=== PATIENT | female | born 1970 | race Caucasian/White ===

== ENCOUNTER 2016-08-18 16:49 | Inpatient (IN) | payer MEDICAID ==
[~2016-08-18] VITALS: Ht 162.6 cm; Wt 43.1 kg
--- NOTE | 2016-08-18 17:00 | NUR ---
PT FAMILY MEMBER AT BEDSIDE.NO TRAUMA . PT WAS HELD BY SON, PROTECTING THE PT. PER PT SON, PT HAD ANOTHER EPISODE OF SEIZURE A FEW YEARS AGO.
[2016-08-18] MEDS ORDERED: ONDANSETRON 4 MG/2 ML VIAL IV ONE (17:15)
[2016-08-18] MEDS ORDERED: ONDANSETRON 4 MG/2 ML VIAL ONE (17:16)
[2016-08-18 17:24] LABS: BASOPHILS # (AUTO) 0.1 K/uL (0.0-0.2); BASOPHILS % (AUTO) 1.1 % (0.0-2.0); EOSINOPHILS # (AUTO) 0.2 K/uL (0.0-0.7); EOSINOPHILS % (AUTO) 1.8 % (0.0-7.0); HEMATOCRIT 33.3 % (37.0-47.0); HEMOGLOBIN 10.9 g/dL (12.0-16.0); LYMPHOCYTES # (AUTO) 4.8 K/uL (0.8-4.8); LYMPHOCYTES % (AUTO) 43.5 % (20.5-51.5); MEAN CORPUSCULAR HEMOGLOBIN 29.3 uug (27.0-31.0); MEAN CORPUSCULAR HGB CONC 33 g/dL (32.0-37.0); MEAN CORPUSCULAR VOLUME 89.6 fL (81.0-99.0); MONOCYTES # (AUTO) 0.8 K/uL (0.1-1.30); MONOCYTES % (AUTO) 7.6 % (0.0-11.0); NEUTROPHILS # (AUTO) 5.2 K/uL (1.8-8.9); PLATELET COUNT (AUTO) 310 K/uL (150-450); RED BLOOD CELL COUNT(AUTO) 3.71 MIL/uL (4.20-5.40); RED CELL DISTRIBUTION WIDTH 12.3 % (11.5-14.5); WHITE BLOOD COUNT (AUTO) 11.1 K/uL (4.0-11.2)
[2016-08-18] MEDS ORDERED: LEVETIRACETAM IV 1,000 MG in IV DEXTROSE 5% 100 ML IV ONE (17:30)
[2016-08-18 17:36] LABS: CALCIUM 9.2 mg/dL (8.5-10.1); CREATININE 1.1 mg/dL (0.6-1.3); POTASSIUM 3.2 mmol/L (3.5-5.1)
[2016-08-18 17:42] LABS: EOSINOPHILS % (MANUAL) 4 % (0-8); LYMPHOCYTES % (MANUAL) 48 % (20-40); MONOCYTES % (MANUAL) 6 % (2-10); NEUTROPHILS % (MANUAL) 42 % (42-75)
[2016-08-18 17:43] LABS: PLATELET ESTIMATE ADEQUATE
[2016-08-18] MEDS ORDERED: LEVETIRACETAM 500 MG/5 ML VIAL IV ONE (17:51)
--- NOTE | 2016-08-18 17:58 | NUR ---
PER PT DAUGHTER, PT AWAKE NOW, PT DOES NOT REMEMBER WHAT HAPPENED BUT PER PT DAUGHRTER, PT COMMUNICATING BEFORE
[2016-08-18] MEDS ORDERED: IV NS 1000 ML 1,000 ML IV ONE (18:00)
[2016-08-18] MEDS ORDERED: METF10002 PO (18:30)
[2016-08-18] MEDS ORDERED: LORA10TA7 PO (18:30)
[2016-08-18] MEDS ORDERED: ATOR40TA PO (18:30)
[2016-08-18] MEDS ORDERED: CHOL100030 PO (18:30)
[2016-08-18] MEDS ORDERED: FENO145T20 PO (18:30)
[2016-08-18] MEDS ORDERED: ASPI81TA31 PO (18:30)
[2016-08-18] MEDS ORDERED: IBUP-1955 PO (18:30)
[2016-08-18] MEDS ORDERED: ONDA-25 PO (18:30)
[2016-08-18] MEDS ORDERED: GLIM1TAB3 PO (18:30)
[2016-08-18] MEDS ORDERED: NAPR500T3 PO (18:30)
[2016-08-18] MEDS ORDERED: LEVE750T10 PO (18:30)
[2016-08-18] MEDS ORDERED: POTASSIUM BICARBONATE/CIT AC 25 MEQ TABLET.EFF PO ONE (20:30)
[2016-08-18 20:34] LABS: *BILIRUBIN,URIN NEGATIVE (NEGATIVE); *BLOOD, URINE 1+ (NEGATIVE); *COLOR,URINE YELLOW (YELLOW); *KETONES,URINE NEGATIVE (NEGATIVE); *PROTEIN,URINE NEGATIVE (NEGATIVE); *UROBILINOGEN,URINE 0.2 E.U./dl (NORMAL); LEUKOCYTE ESTERASE ,URINE NEGATIVE (NEGATIVE); NITRITE, URINE NEGATIVE (NEGATIVE); PH,URINE 5.5 (5.0-8.0)
[2016-08-18 20:39] LABS: ALANINE AMINOTRANSFERASE 37 U/L (14-59); ALBUMIN 4.1 g/dL (3.4-5.0); ALKALINE PHOSPHATASE 64 U/L (50-136); ASPARTATE AMINOTRANSFERASE 25 U/L (15-37); BILIRUBIN,DIRECT < 0.1 mg/dL (0.0-0.2); BILIRUBIN,TOTAL 0.2 mg/dL (0.2-1.0); MAGNESIUM 1.5 mg/dL (1.8-2.4); TOTAL PROTEIN, SERUM 8.2 g/dL (6.4-8.2)
[2016-08-18] MEDS ORDERED: POTASSIUM BICARBONATE/CIT AC 25 MEQ TABLET.EFF ONE (20:40)
[2016-08-18 20:49] LABS: UGLUCOSE 1+ (NEGATIVE)
[2016-08-18 20:52] LABS: *CLARITY,URINE CLEAR (CLEAR)
[2016-08-18 20:55] LABS: RBC,URINE 0-3 /HPF (0-3); SQUAMOUS EPITHELIAL CELL,UR FEW /HPF (NONE SEEN); WBC,URINE 0-3 /HPF (0-3)
[2016-08-18] MEDS ORDERED: MAGNESIUM SULFATE/D5W 100 ML IV SCH (21:15)
[2016-08-18] MEDS ORDERED: MAGNESIUM SULFATE/D5W 100 ML ONE (21:25)
--- NOTE | 2016-08-18 22:02 | NUR ---
Pt. admitted to Telemetry , under care of Dr. Antonio. Dx : Siezure/Encephalopathy Belongs List completed.
[2016-08-18 22:10] VITALS: BP 93/63
--- NOTE | 2016-08-18 22:30 | NUR ---
PATIENT RECEIVED FROM ED ACCOMPANIED BY ED STAFF AND PATIENT DAUGHTER VIA GURNEY. DIAGNOSIS IS SEIZURE. PATIENT IS PALAUAN SPEAKING ONLY, INFORMATION GIVEN BY DAUGHTER JO ANN. UPON FACE TO FACE PATIENT IS AOX2. OBSERVED TO BE SOMEWHAT CONFUSED AND FORGETFUL. PT ALSO SOMEWHAT SLOW IN RESPONSE DURING INTERACTION. PER DAUGHTER PT SEIZURE WAS WITNESSED AT HOME AND WAS ABLE TO BE ASSISTED TO FLOOR PRIOR TO SEIZURE. LAST SEIZURE X6 YEARS AGO. PATIENT ALSO HAS MEDICAL HISTORY OF DIABETES. SKIN IS INTACT. HEP LOCK IN LEFT AC. MD CALLED FOR ORDERS. SAFETY MEASURES IMPLEMENTED.
[2016-08-18] MEDS ORDERED: ACETAMINOPHEN 325 MG TABLET PO PRN (23:15)
[2016-08-18] MEDS ORDERED: NAPROXEN 500 MG TABLET PO PRN (23:15)
[2016-08-18] MEDS ORDERED: INSULIN REGULAR, HUMAN 300 UNIT/3 ML VIAL SQ PRN (23:15)
[2016-08-18] MEDS ORDERED: MORPHINE SULFATE 2 MG/1 ML DISP.SYRIN IV PRN (23:15)
[2016-08-18] MEDS ORDERED: ONDANSETRON 4 MG/2 ML VIAL IV PRN (23:15)
[2016-08-18] MEDS ORDERED: DEXTROSE 50% 50 ML DISP.SYRIN IV PRN (23:15)
[2016-08-18] MEDS ORDERED: MAGNESIUM HYDROXIDE 30 ML LIQUID UDC PO PRN (23:15)
[2016-08-19] MEDS: POTASSIUM CHLORIDE 20 MEQ in IV 1/2NS 1000 ML 1,000 ML IV PRN ×2 (00:10→13:16)
[2016-08-19 05:45] VITALS: BP 81/53
--- NOTE | 2016-08-19 06:23 | NUR ---
MADE AWARE OF PATIENT BLOOD PRESSURE 81/53, HEART RATE 73. NO S/S HYPOTENSION NOTED. PATIENT FEET ELEVATED. NO FURTHER ORDERS GIVEN. PO FLUIDS GIVEN. REMAINS ON IV FLUIDS AT 70CC/HR. NO ACUTE DISTRESS NOTED. SAFETY MEASURES PROVIDED.
[2016-08-19] MEDS: BLOOD SUGAR DIAGNOSTIC 1 EACH STRIP VI SCH ×4 (06:45→20:30)
[2016-08-19 07:13] LABS: ALBUMIN 3.1 g/dL (3.4-5.0); BILIRUBIN,TOTAL 0.4 mg/dL (0.2-1.0); CALCIUM 7.7 mg/dL (8.5-10.1); CREATININE 0.7 mg/dL (0.6-1.3); MAGNESIUM 1.8 mg/dL (1.8-2.4); PHOSPHOROUS 3.1 mg/dL (2.5-4.9); POTASSIUM 3.9 mmol/L (3.5-5.1); TOTAL PROTEIN, SERUM 6.5 g/dL (6.4-8.2)
[2016-08-19 07:18] LABS: BASOPHILS % (AUTO) 0.3 % (0.0-2.0); EOSINOPHILS # (AUTO) 0.1 K/uL (0.0-0.7); EOSINOPHILS % (AUTO) 0.9 % (0.0-7.0); HEMATOCRIT 29.4 % (37.0-47.0); HEMOGLOBIN 9.9 g/dL (12.0-16.0); LYMPHOCYTES % (AUTO) 16.9 % (20.5-51.5); MEAN CORPUSCULAR HEMOGLOBIN 30.4 uug (27.0-31.0); MEAN CORPUSCULAR HGB CONC 34 g/dL (32.0-37.0); MEAN CORPUSCULAR VOLUME 90.7 fL (81.0-99.0); MONOCYTES % (AUTO) 8.5 % (0.0-11.0); NEUTROPHILS # (AUTO) 8.5 K/uL (1.8-8.9); NEUTROPHILS % (AUTO) 73.4 % (38.5-71.5); PLATELET COUNT (AUTO) 258 K/uL (150-450); RED BLOOD CELL COUNT(AUTO) 3.25 MIL/uL (4.20-5.40); RED CELL DISTRIBUTION WIDTH 12.5 % (11.5-14.5); WHITE BLOOD COUNT (AUTO) 11.6 K/uL (4.0-11.2)
[2016-08-19 07:20] LABS: THYROID STIMULATING HORMONE 1.142 mIU/mL (0.358-3.740)
[2016-08-19] MEDS: GLIMEPIRIDE 2 MG TABLET PO SCH (08:00)
[2016-08-19] MEDS: ASPIRIN 81 MG TAB.CHEW PO SCH (08:21)
[2016-08-19] MEDS: METFORMIN HCL 500 MG TABLET PO SCH ×2 (08:21→17:32)
[2016-08-19] MEDS: CHOLECALCIFEROL 1,000 UNIT TABLET PO SCH (08:21)
[2016-08-19] MEDS: PANTOPRAZOLE SODIUM 40 MG TABLET.DR PO SCH (08:21)
[2016-08-19] MEDS: LEVETIRACETAM 500 MG TABLET PO SCH ×2 (08:21→20:30)
[2016-08-19] MEDS: LORATADINE 10 MG TABLET PO SCH (08:23)
--- NOTE | 2016-08-19 08:30 | NUR ---
PATIENT ASSISTED TO THE BATHROOM HAND HELD AND VOIDED WELL.DENIES PAIN OR DISCOMFORTS AT THIS TIME AND NO SEIZURE ACTIVITIES NOTED.
[2016-08-19] MEDS ORDERED: LEVETIRACETAM 500 MG/5 ML LIQUID UDC NG SCH (09:00)
[2016-08-19] MEDS ORDERED: IV NORMAL SALINE 500 ML IV ONE (09:45)
--- NOTE | 2016-08-19 10:08 | NUR ---
NEW ORDER TO GIVE PATIENT NS BOLUS RECEIVED FROM ANA AERIAL INSTALLER RECEIVED AND NOTED BLOOD PRESSURE AT THIS TIME IS 81/52 PATIENT DENIES ANY SYMPTOMS AT THIS TIME.
--- NOTE | 2016-08-19 10:45 | NUR ---
MISTY COBOS HAS FINISHED SO BLOOD PRESSURE RECHECKED AND ITS 82/50 ANA YOUTH COORDINATOR WAS NOTIFIED WITH NEW ORDERS TO INCREASE HER IV FLUID RATE TO 100 CC/HR AND NOTED.
[2016-08-19 11:34] VITALS: BP 96/54
[2016-08-19 12:15] VITALS: BP 107/66
--- NOTE | 2016-08-19 12:15 | NUR ---
BLOOD PRESSURE RECHECKED AND ITS 107/66 AT THIS TIME.PATIENT ASSISTED INTO THE BATHROOM AND SHE VOIDED AND BACK TO BED.
[2016-08-19] MEDS: CEFTRIAXONE 1 G in IV DEXTROSE 5% 50 ML IV SCH (13:03)
--- NOTE | 2016-08-19 13:27 | NUR ---
2D ECHO COMPLETED AND EF IS AT 65% PATIENT REMAIN ON IV ANTIBIOTICS ORDERED WITH NO ADVERSE OR ALLERGIC REACTIONS AT THIS TIME.IVF IN PROGRESS AT THIS TIME.
[2016-08-19 16:07] VITALS: BP 87/59
--- NOTE | 2016-08-19 18:00 | NUR ---
REMAIN ON IV ANTIBIOTICS ORDERED WITH NO ADVERSE OR ALLERGIC REACTIONS AT THIS TIME.CURRENT BLOOD PRESSURE IS 96/55
[2016-08-19 19:00] VITALS: BP 87/53
[2016-08-19] MEDS: ATORVASTATIN 40 MG TABLET PO SCH (20:30)
--- NOTE | 2016-08-19 21:30 | NUR ---
Alert, cooperative but is withdrawn. Mostly Bruneian speaking but understands Greek fairly well. Plans of care discussed, pt agreeable. Denies pain/discomfort. No seizure activities noted. Seizure precautions observed at all times. Reminded to call RN for any assistance; pt agreeable. IVF infusing well left arm, site clear. Pt remains asymptomatic with low BP trends. Will continue to monitor closely.
[2016-08-20 00:30] VITALS: BP 89/55
[2016-08-20] MEDS: POTASSIUM CHLORIDE 20 MEQ in IV 1/2NS 1000 ML 1,000 ML IV PRN ×2 (01:01→22:52)
[2016-08-20 04:00] VITALS: BP 90/53
--- NOTE | 2016-08-20 04:00 | NUR ---
Tolerated well OOB activities to bathroom with minimal supervision.
--- NOTE | 2016-08-20 06:00 | NUR ---
No seizure activities noted; refuses pads be put on bedrails. Safety precautions observed at all times. Pain/discomfort free this shift.
[2016-08-20] MEDS: BLOOD SUGAR DIAGNOSTIC 1 EACH STRIP VI SCH ×4 (06:20→20:23)
[2016-08-20] MEDS: PANTOPRAZOLE SODIUM 40 MG TABLET.DR PO SCH (06:20)
[2016-08-20 06:51] LABS: BASOPHILS % (AUTO) 0.5 % (0.0-2.0); EOSINOPHILS # (AUTO) 0.1 K/uL (0.0-0.7); EOSINOPHILS % (AUTO) 1.5 % (0.0-7.0); HEMATOCRIT 29.6 % (37.0-47.0); HEMOGLOBIN 9.4 g/dL (12.0-16.0); LYMPHOCYTES # (AUTO) 2.2 K/uL (0.8-4.8); LYMPHOCYTES % (AUTO) 25.7 % (20.5-51.5); MEAN CORPUSCULAR HEMOGLOBIN 28.7 uug (27.0-31.0); MEAN CORPUSCULAR HGB CONC 32 g/dL (32.0-37.0); MEAN CORPUSCULAR VOLUME 90.2 fL (81.0-99.0); MONOCYTES # (AUTO) 0.6 K/uL (0.1-1.30); NEUTROPHILS # (AUTO) 5.6 K/uL (1.8-8.9); NEUTROPHILS % (AUTO) 65.3 % (38.5-71.5); PLATELET COUNT (AUTO) 247 K/uL (150-450); RED BLOOD CELL COUNT(AUTO) 3.29 MIL/uL (4.20-5.40); RED CELL DISTRIBUTION WIDTH 12.8 % (11.5-14.5); WHITE BLOOD COUNT (AUTO) 8.5 K/uL (4.0-11.2)
[2016-08-20 07:04] LABS: ALBUMIN 2.9 g/dL (3.4-5.0); BILIRUBIN,TOTAL 0.2 mg/dL (0.2-1.0); CALCIUM 8.1 mg/dL (8.5-10.1); CREATININE 0.7 mg/dL (0.6-1.3); MAGNESIUM 1.8 mg/dL (1.8-2.4); PHOSPHOROUS 2.8 mg/dL (2.5-4.9); POTASSIUM 4.1 mmol/L (3.5-5.1); TOTAL PROTEIN, SERUM 6.2 g/dL (6.4-8.2)
[2016-08-20] MEDS: ASPIRIN 81 MG TAB.CHEW PO SCH (08:46)
[2016-08-20] MEDS: GLIMEPIRIDE 2 MG TABLET PO SCH (08:46)
[2016-08-20] MEDS: CHOLECALCIFEROL 1,000 UNIT TABLET PO SCH (08:46)
[2016-08-20] MEDS: LORATADINE 10 MG TABLET PO SCH (08:46)
[2016-08-20] MEDS: METFORMIN HCL 500 MG TABLET PO SCH ×2 (08:46→17:27)
[2016-08-20] MEDS: LEVETIRACETAM 500 MG TABLET PO SCH ×2 (08:47→20:18)
[2016-08-20 13:01] VITALS: BP 100/48
[2016-08-20] MEDS: CEFTRIAXONE 1 G in IV DEXTROSE 5% 50 ML IV SCH (13:29)
[2016-08-20] MEDS ORDERED: NAPROXEN 500 MG TABLET PO ONE (15:00)
[2016-08-20 15:12] VITALS: BP 100/57
[2016-08-20 20:00] VITALS: BP 108/59
[2016-08-20] MEDS: ATORVASTATIN 40 MG TABLET PO SCH (20:18)
[2016-08-21 04:00] VITALS: BP 109/55
[2016-08-21] MEDS: PANTOPRAZOLE SODIUM 40 MG TABLET.DR PO SCH (06:14)
[2016-08-21 07:19] LABS: ALBUMIN 3.1 g/dL (3.4-5.0); BASOPHILS % (AUTO) 0.5 % (0.0-2.0); BILIRUBIN,TOTAL 0.2 mg/dL (0.2-1.0); CALCIUM 8.8 mg/dL (8.5-10.1); CREATININE 0.7 mg/dL (0.6-1.3); EOSINOPHILS # (AUTO) 0.2 K/uL (0.0-0.7); HEMATOCRIT 29.9 % (37.0-47.0); HEMOGLOBIN 9.9 g/dL (12.0-16.0); LYMPHOCYTES # (AUTO) 2.1 K/uL (0.8-4.8); LYMPHOCYTES % (AUTO) 22.5 % (20.5-51.5); MAGNESIUM 1.8 mg/dL (1.8-2.4); MEAN CORPUSCULAR HEMOGLOBIN 29.6 uug (27.0-31.0); MEAN CORPUSCULAR HGB CONC 33 g/dL (32.0-37.0); MEAN CORPUSCULAR VOLUME 89.9 fL (81.0-99.0); MONOCYTES # (AUTO) 0.8 K/uL (0.1-1.30); MONOCYTES % (AUTO) 8.2 % (0.0-11.0); NEUTROPHILS # (AUTO) 6.4 K/uL (1.8-8.9); NEUTROPHILS % (AUTO) 66.8 % (38.5-71.5); PHOSPHOROUS 3.2 mg/dL (2.5-4.9); PLATELET COUNT (AUTO) 245 K/uL (150-450); POTASSIUM 4.5 mmol/L (3.5-5.1); RED BLOOD CELL COUNT(AUTO) 3.33 MIL/uL (4.20-5.40); RED CELL DISTRIBUTION WIDTH 12.1 % (11.5-14.5); TOTAL PROTEIN, SERUM 6.3 g/dL (6.4-8.2); WHITE BLOOD COUNT (AUTO) 9.5 K/uL (4.0-11.2)
--- NOTE | 2016-08-21 07:23 | NUR ---
Report received from mini shifter. Patient AAOx3, no signs of acute distress noted at this time. No complaints of pain at this time. S1, S2 heart sounds noted, respirations clear and nonlabored. Skin clean, dry, and intact. IV to left AC 20G, no redness or swelling, IV fluids running. Last accucheck 71 @ 0730. Two orange juices with added sugar given. Will continue to monitor BS. Safety and fall precautions maintained.
--- NOTE | 2016-08-21 07:32 | NUR ---
accucheck 57mg/dl pt awake ,alert, given 2 cups of orange juice and rechecked BG 71mg/dl.
[2016-08-21] MEDS: BLOOD SUGAR DIAGNOSTIC 1 EACH STRIP VI SCH ×2 (07:33→07:34)
[2016-08-21] MEDS: METFORMIN HCL 500 MG TABLET PO SCH (07:59)
[2016-08-21] MEDS: ASPIRIN 81 MG TAB.CHEW PO SCH (08:00)
[2016-08-21] MEDS: LORATADINE 10 MG TABLET PO SCH (08:00)
[2016-08-21] MEDS: LEVETIRACETAM 500 MG TABLET PO SCH (08:00)
[2016-08-21] MEDS: CHOLECALCIFEROL 1,000 UNIT TABLET PO SCH (08:00)
[2016-08-21] MEDS ORDERED: NAPROXEN 500 MG TABLET PO SCH (08:00)
[2016-08-21] MEDS: GLIMEPIRIDE 2 MG TABLET PO SCH (08:00)
[2016-08-21] MEDS: POTASSIUM CHLORIDE 20 MEQ in IV 1/2NS 1000 ML 1,000 ML IV PRN (08:00)
[2016-08-21 11:35] LABS: *OCCULT BLOOD STOOL NEGATIVE (NEGATIVE)
[2016-08-21 11:56] VITALS: BP 101/59
--- NOTE | 2016-08-21 12:55 | NUR ---
Accucheck @ 59. No symptoms of low blood sugar noted, patient complains of slight drowsiness, but no complaints of confusion or other symptoms. Two orange juices with added sugar given. No other complaints at this time, will follow up with follow up accucheck.
--- NOTE | 2016-08-21 13:30 | NUR ---
Accucheck re-evaluated @ 68, alert and oriented. Notified and discussed with Jo LOUIE, will continue to give orange juice to increase BS to normal range and continue discharge paperwork. Two orange juices with added sugar given. Will continue to monitor BS.
[2016-08-21] MEDS ORDERED: CEPHALEXIN MONOHYDRATE 500 MG CAPSULE PO SCH (14:45)
[2016-08-21] MEDS ORDERED: Cephalexin Monohydrate PO (14:58)
[2016-08-21] MEDS ORDERED: Naproxen PO (14:58)
[2016-08-21] MEDS ORDERED: LEVE500T9 PO (14:58)
--- NOTE | 2016-08-21 15:30 | NUR ---
Accucheck re-evaluated @ 81, alert and oriented. No other complaints at this time. Discharge paperwork printed and reviewed with patient and family at bedside. Verbalized understanding of instructions. IV HL discontinued. Patient left via private car accompanied by family.
[2016-08-21] MEDS ORDERED: METF10002 PO (16:46)
== END 2016-08-21 16:30 | disposition home or self-care (01) | DRG 53 ==
LOC: ER 17:07 → TELE 21:49 → MED 08-20 20:00
PROVIDERS: ADMIT Internal Medicine; ATTEND Internal Medicine
DX: G40.909 Epilepsy, unspecified, not intractable, without status epilepticus (principal); E44.0 Moderate protein-calorie malnutrition; E11.65 Type 2 diabetes mellitus with hyperglycemia; I69.354 Hemiplegia and hemiparesis following cerebral infarction affecting left non-dominant side; E83.42 Hypomagnesemia; N39.0 Urinary tract infection, site not specified; I95.9 Hypotension, unspecified; B96.20 Unspecified Escherichia coli [E. coli] as the cause of diseases classified elsewhere; D64.9 Anemia, unspecified; E78.5 Hyperlipidemia, unspecified; E83.51 Hypocalcemia; Z79.899 Other long term (current) drug therapy; Z91.14 Patient's other noncompliance with medication regimen; D72.829 Elevated white blood cell count, unspecified; R53.1 Weakness; I34.0 Nonrheumatic mitral (valve) insufficiency; I36.1 Nonrheumatic tricuspid (valve) insufficiency; I37.1 Nonrheumatic pulmonary valve insufficiency; Z68.1 Body mass index [BMI] 19.9 or less, adult; Z79.84 Long term (current) use of oral hypoglycemic drugs
CPT/HCPCS: 36415; 70450; 71010; 83735; 84100; 84443; 84703; 85025; 87040; 87077; 87086; 93005; 93307; 97001; 97110; 97116; 97530; A4663; J0696; J1815; J1953; J2405; J3475; J3480; J3490; J7030; J7040; J7060

== ENCOUNTER 2016-09-12 05:07 | Inpatient (IN) | payer MEDICAID ==
[~2016-09-12] VITALS: Ht 154.9 cm; Wt 34.0 kg
[~2016-09-12 05:07] MED LIST: ASPI81TA31 PO; ATOR40TA PO; CHOL100030 PO; Cephalexin Monohydrate PO; LEVE500T9 PO; LORA10TA7 PO; METF10002 PO; Naproxen PO
[2016-09-12 06:09] LABS: BASOPHILS % (AUTO) 0.4 % (0.0-2.0); EOSINOPHILS # (AUTO) 0.1 K/uL (0.0-0.7); EOSINOPHILS % (AUTO) 0.7 % (0.0-7.0); HEMATOCRIT 35.2 % (31.2-41.9); HEMOGLOBIN 11.9 g/dL (10.9-14.3); LYMPHOCYTES # (AUTO) 1.3 K/uL (20.0-40.0); LYMPHOCYTES % (AUTO) 11.1 % (20.5-51.5); MEAN CORPUSCULAR HEMOGLOBIN 29.4 uug (24.7-32.8); MEAN CORPUSCULAR HGB CONC 34 g/dL (32.3-35.6); MEAN CORPUSCULAR VOLUME 87.2 fL (75.5-95.3); MONOCYTES # (AUTO) 0.8 K/uL (2.0-10.0); MONOCYTES % (AUTO) 6.7 % (0.0-11.0); NEUTROPHILS # (AUTO) 9.5 K/uL (1.8-8.9); NEUTROPHILS % (AUTO) 81.1 % (38.5-71.5); PLATELET COUNT (AUTO) 294 K/uL (179-408); RED BLOOD CELL COUNT(AUTO) 4.03 MIL/uL (3.63-4.92); RED CELL DISTRIBUTION WIDTH 12.3 % (12.3-17.7); WHITE BLOOD COUNT (AUTO) 11.7 K/uL (3.8-11.8)
[2016-09-12 06:11] LABS: CALCIUM 9.3 mg/dL (8.5-10.1); CREATININE 0.8 mg/dL (0.6-1.3); POTASSIUM 4.6 mmol/L (3.5-5.1)
[2016-09-12 06:18] LABS: ALBUMIN 4.1 g/dL (3.4-5.0); BILIRUBIN,DIRECT 0.1 mg/dL (0.0-0.2); BILIRUBIN,TOTAL 0.4 mg/dL (0.2-1.0); TOTAL PROTEIN, SERUM 8.4 g/dL (6.4-8.2)
[2016-09-12] MEDS ORDERED: Z GUARD REMEDY PASTE 57 GM TUBE TOP PRN (06:45)
[2016-09-12] MEDS ORDERED: ACETAMINOPHEN 650 MG SUPP.RECT RC PRN (06:45)
[2016-09-12] MEDS ORDERED: DEXTROSE 50% 50 ML DISP.SYRIN IV PRN (06:45)
[2016-09-12] MEDS ORDERED: MAGNESIUM HYDROXIDE 30 ML LIQUID UDC PO PRN (06:45)
[2016-09-12 08:19] VITALS: BP 118/74
[2016-09-12] MEDS: BLOOD SUGAR DIAGNOSTIC 1 EACH STRIP VI SCH ×4 (08:40→21:00)
[2016-09-12] MEDS: IV NS 1000 ML 1,000 ML IV PRN ×2 (08:54→22:58)
[2016-09-12] MEDS: PANTOPRAZOLE SODIUM 40 MG VIAL IV SCH (08:54)
[2016-09-12] MEDS: LEVETIRACETAM IV 500 MG in IV DEXTROSE 5% 100 ML IV SCH ×2 (08:55→20:45)
[2016-09-12] MEDS ORDERED: ASPIRIN 81 MG TAB.CHEW PO SCH (09:00)
[2016-09-12] MEDS: INSULIN REGULAR, HUMAN 300 UNIT/3 ML VIAL SQ PRN ×3 (09:06→21:10)
[2016-09-12 11:12] VITALS: BP 102/62
[2016-09-12 15:08] VITALS: BP 108/64
[2016-09-12 20:00] VITALS: BP 123/78
[2016-09-12] MEDS: ATORVASTATIN 40 MG TABLET PO SCH (20:45)
[2016-09-12] MEDS ORDERED: ASPIRIN/DIPYRIDAMOLE 25/200 MG CAPSULE ONE (23:32)
[2016-09-13] VITALS: BP 111/65
[2016-09-13 04:00] VITALS: BP 123/68
[2016-09-13] MEDS: INSULIN REGULAR, HUMAN 300 UNIT/3 ML VIAL SQ PRN ×2 (06:25→11:48)
[2016-09-13] MEDS: BLOOD SUGAR DIAGNOSTIC 1 EACH STRIP VI SCH ×4 (06:25→21:06)
[2016-09-13] MEDS: ACETAMINOPHEN 325 MG TABLET PO PRN ×3 (06:29→19:48)
[2016-09-13 07:21] LABS: ALBUMIN 3.4 g/dL (3.4-5.0); BILIRUBIN,TOTAL 0.4 mg/dL (0.2-1.0); CALCIUM 8.4 mg/dL (8.5-10.1); CREATININE 0.7 mg/dL (0.6-1.3); MAGNESIUM 1.7 mg/dL (1.8-2.4); PHOSPHOROUS 3.9 mg/dL (2.5-4.9); POTASSIUM 4.3 mmol/L (3.5-5.1); TOTAL PROTEIN, SERUM 7.2 g/dL (6.4-8.2)
[2016-09-13 07:32] LABS: BASOPHILS % (AUTO) 0.4 % (0.0-2.0); EOSINOPHILS # (AUTO) 0.1 K/uL (0.0-0.7); EOSINOPHILS % (AUTO) 1.1 % (0.0-7.0); HEMOGLOBIN 10.8 g/dL (10.9-14.3); LYMPHOCYTES % (AUTO) 23.6 % (20.5-51.5); MEAN CORPUSCULAR HEMOGLOBIN 30.8 uug (24.7-32.8); MEAN CORPUSCULAR HGB CONC 36 g/dL (32.3-35.6); MEAN CORPUSCULAR VOLUME 86.2 fL (75.5-95.3); MONOCYTES % (AUTO) 12.3 % (0.0-11.0); NEUTROPHILS # (AUTO) 5.4 K/uL (1.8-8.9); NEUTROPHILS % (AUTO) 62.6 % (38.5-71.5); PLATELET COUNT (AUTO) 286 K/uL (179-408); RED BLOOD CELL COUNT(AUTO) 3.51 MIL/uL (3.63-4.92); RED CELL DISTRIBUTION WIDTH 12.5 % (12.3-17.7)
[2016-09-13 07:41] LABS: HEMATOCRIT 30.2 % (31.2-41.9); WHITE BLOOD COUNT (AUTO) 8.5 K/uL (3.8-11.8)
[2016-09-13 08:11] LABS: *BILIRUBIN,URIN NEGATIVE (NEGATIVE); *BLOOD, URINE NEGATIVE (NEGATIVE); *CLARITY,URINE CLEAR (CLEAR); *COLOR,URINE YELLOW (YELLOW); *KETONES,URINE NEGATIVE (NEGATIVE); *PROTEIN,URINE NEGATIVE (NEGATIVE); *UROBILINOGEN,URINE 0.2 E.U./dl (NORMAL); LEUKOCYTE ESTERASE ,URINE NEGATIVE (NEGATIVE); NITRITE, URINE NEGATIVE (NEGATIVE); UGLUCOSE NEGATIVE (NEGATIVE)
[2016-09-13 08:26] LABS: BACTERIA,URINE NONE SEEN /HPF (NONE SEEN); RBC,URINE 0-3 /HPF (0-3); SQUAMOUS EPITHELIAL CELL,UR FEW /HPF (NONE SEEN); WBC,URINE NONE SEEN /HPF (0-3)
[2016-09-13] MEDS: PANTOPRAZOLE SODIUM 40 MG VIAL IV SCH (09:03)
[2016-09-13] MEDS: LEVETIRACETAM IV 500 MG in IV DEXTROSE 5% 100 ML IV SCH (09:14)
[2016-09-13 11:19] VITALS: BP 110/75
[2016-09-13] MEDS: IV NS 1000 ML 1,000 ML IV PRN (11:49)
[2016-09-13] MEDS ORDERED: MAGNESIUM OXIDE 400 MG TABLET PO ONE (12:00)
[2016-09-13] MEDS: ASPIRIN/DIPYRIDAMOLE 25/200 MG CAPSULE PO SCH ×2 (12:00→21:02)
[2016-09-13] MEDS ORDERED: MAGNESIUM SULFATE/D5W 100 ML IV SCH (12:15)
[2016-09-13 15:47] VITALS: BP 114/68
[2016-09-13] MEDS: METFORMIN HCL 500 MG TABLET PO SCH (16:54)
[2016-09-13] MEDS ORDERED: ATORVASTATIN 40 MG TABLET PO SCH (18:00)
[2016-09-13 20:00] VITALS: BP 109/70
[2016-09-13] MEDS ORDERED: ASPIRIN/DIPYRIDAMOLE 25/200 MG CAPSULE PO SCH (21:00)
[2016-09-13] MEDS ORDERED: LEVETIRACETAM 500 MG/5 ML LIQUID UDC NG SCH (21:00)
[2016-09-13] MEDS: ATORVASTATIN 40 MG TABLET PO SCH (21:02)
[2016-09-13] MEDS: LEVETIRACETAM 500 MG TABLET PO SCH (21:02)
[2016-09-13] MEDS: ONDANSETRON 4 MG/2 ML VIAL IV PRN (21:32)
[2016-09-14] VITALS: BP 93/60
[2016-09-14 04:00] VITALS: BP 99/63
[2016-09-14] MEDS ORDERED: KETOROLAC TROMETHAMINE 30 MG INJ ONE (05:08)
[2016-09-14] MEDS: BLOOD SUGAR DIAGNOSTIC 1 EACH STRIP VI SCH ×2 (06:12→11:42)
[2016-09-14 06:39] LABS: CALCIUM 8.8 mg/dL (8.5-10.1); CREATININE 0.8 mg/dL (0.6-1.3); PHOSPHOROUS 3.9 mg/dL (2.5-4.9); POTASSIUM 4.6 mmol/L (3.5-5.1)
[2016-09-14] MEDS ORDERED: PANTOPRAZOLE SODIUM 40 MG TABLET.DR PO SCH (07:00)
[2016-09-14 07:29] LABS: BASOPHILS % (AUTO) 0.5 % (0.0-2.0); EOSINOPHILS # (AUTO) 0.1 K/uL (0.0-0.7); EOSINOPHILS % (AUTO) 1.1 % (0.0-7.0); HEMATOCRIT 31.6 % (31.2-41.9); HEMOGLOBIN 10.9 g/dL (10.9-14.3); LYMPHOCYTES # (AUTO) 2.7 K/uL (20.0-40.0); MEAN CORPUSCULAR HEMOGLOBIN 30.3 uug (24.7-32.8); MEAN CORPUSCULAR HGB CONC 34 g/dL (32.3-35.6); MEAN CORPUSCULAR VOLUME 88.2 fL (75.5-95.3); MONOCYTES # (AUTO) 0.9 K/uL (2.0-10.0); NEUTROPHILS # (AUTO) 5.3 K/uL (1.8-8.9); NEUTROPHILS % (AUTO) 58.4 % (38.5-71.5); PLATELET COUNT (AUTO) 307 K/uL (179-408); RED BLOOD CELL COUNT(AUTO) 3.59 MIL/uL (3.63-4.92); RED CELL DISTRIBUTION WIDTH 12.7 % (12.3-17.7)
[2016-09-14] MEDS: ONDANSETRON 4 MG/2 ML VIAL IV PRN ×2 (08:01→13:58)
[2016-09-14] MEDS: ACETAMINOPHEN 325 MG TABLET PO PRN ×2 (08:01→13:58)
[2016-09-14] MEDS: METFORMIN HCL 500 MG TABLET PO SCH (08:01)
[2016-09-14] MEDS: ASPIRIN/DIPYRIDAMOLE 25/200 MG CAPSULE PO SCH (08:02)
[2016-09-14] MEDS: LEVETIRACETAM 500 MG TABLET PO SCH (08:02)
[2016-09-14] MEDS ORDERED: CHOLECALCIFEROL 1,000 UNIT TABLET PO SCH (09:00)
[2016-09-14] MEDS ORDERED: ASPIRIN 81 MG TAB.CHEW PO SCH (09:00)
[2016-09-14] MEDS ORDERED: LORATADINE 10 MG TABLET PO SCH (09:00)
[2016-09-14 11:18] VITALS: BP 112/69
[2016-09-14] MEDS: INSULIN REGULAR, HUMAN 300 UNIT/3 ML VIAL SQ PRN (11:42)
[2016-09-14 15:10] VITALS: BP 100/66
[2016-09-14] MEDS ORDERED: ASPI1CPM PO (15:37)
[2016-09-14] MEDS ORDERED: HYDR-3326 PO (15:41)
== END 2016-09-14 16:40 | disposition home or self-care (01) | DRG 45 ==
LOC: ER 05:20 → TELE 08:00 → MED 09-14 08:05
PROVIDERS: ADMIT Nurse Practitioner Acute Care; ATTEND Internal Medicine
DX: I63.9 Cerebral infarction, unspecified (principal); G93.49 Other encephalopathy; E87.1 Hypo-osmolality and hyponatremia; I69.354 Hemiplegia and hemiparesis following cerebral infarction affecting left non-dominant side; N39.0 Urinary tract infection, site not specified; I10 Essential (primary) hypertension; D64.9 Anemia, unspecified; E11.9 Type 2 diabetes mellitus without complications; G40.909 Epilepsy, unspecified, not intractable, without status epilepticus; E78.5 Hyperlipidemia, unspecified; Z79.84 Long term (current) use of oral hypoglycemic drugs; Z91.14 Patient's other noncompliance with medication regimen; Z79.899 Other long term (current) drug therapy; Z74.09 Other reduced mobility
CPT/HCPCS: 36415; 70030-TC; 70450; 71010; 83735; 84100; 84703; 85025; 85730; 87077; 87086; 87205; 92610; 93005; 97001; A4663; C9113; J1815; J1885; J1953; J2405; J7030; J7060

== ENCOUNTER 2016-10-19 15:51 | Inpatient (IN) | payer MEDICAID ==
[~2016-10-19] VITALS: Ht 154.9 cm; Wt 41.7 kg
[~2016-10-19 15:51] MED LIST changes: +ASPI1CPM PO; -Cephalexin Monohydrate PO; +HYDR-3326 PO; -METF10002 PO; -Naproxen PO
[2016-10-19] MEDS ORDERED: LEVE500T20 PO (16:42)
[2016-10-19] MEDS ORDERED: METF10002 PO (16:42)
[2016-10-19 17:14] LABS: BASOPHILS % (AUTO) 0.3 % (0.0-2.0); EOSINOPHILS % (AUTO) 0.4 % (0.0-7.0); HEMATOCRIT 26.9 % (37-47); HEMOGLOBIN 8.8 G/DL (12.0-16.0); LYMPHOCYTES % (AUTO) 9.6 % (20.5-51.5); MEAN CORPUSCULAR HEMOGLOBIN 27.7 UUG (27.0-31.0); MEAN CORPUSCULAR HGB CONC 33 g/dL (32.0-37.0); MEAN CORPUSCULAR VOLUME 85.1 FL (81.0-99.0); MONOCYTES # (AUTO) 0.7 K/UL (0.1-1.30); MONOCYTES % (AUTO) 6.1 % (0.0-11.0); NEUTROPHILS # (AUTO) 9.2 K/UL (1.8-8.9); NEUTROPHILS % (AUTO) 83.6 % (38.5-71.5); PLATELET COUNT (AUTO) 332 K/UL (150-450); RED BLOOD CELL COUNT(AUTO) 3.16 MIL/UL (4.2-5.4); WHITE BLOOD COUNT (AUTO) 10.9 K/UL (4.0-11.2)
[2016-10-19 17:27] LABS: CARBON DIOXIDE 24 mmol/L (21-32); CHLORIDE 97 mmol/L (98-107); CREATININE 0.8 mg/dL (0.6-1.3); GLUCOSE 146 mg/dL (74-106); UREA NITROGEN, BLOOD 7 mg/dL (7-18)
[2016-10-19 17:28] LABS: *BILIRUBIN,URIN NEGATIVE (NEGATIVE); *BLOOD, URINE Trace-intact (NEGATIVE); *CLARITY,URINE SLIGHTLY CLOUDY (CLEAR); *COLOR,URINE YELLOW (YELLOW); *KETONES,URINE NEGATIVE (NEGATIVE); *PROTEIN,URINE NEGATIVE (NEGATIVE); *UROBILINOGEN,URINE 0.2 E.U./dl (NORMAL); LEUKOCYTE ESTERASE ,URINE NEGATIVE (NEGATIVE); NITRITE, URINE NEGATIVE (NEGATIVE); PH,URINE 5.5 (5.0-8.0); UGLUCOSE NEGATIVE (NEGATIVE)
[2016-10-19] MEDS ORDERED: IV NORMAL SALINE 1000 ML BAG IV ONE (17:30)
[2016-10-19] MEDS ORDERED: LEVOFLOXACIN 750 MG/D5W 150 ML PIGGYBACK IV ONE (17:30)
[2016-10-19 17:34] LABS: BACTERIA,URINE NONE SEEN /HPF (NONE SEEN); RBC,URINE 0-3 /HPF (0-3); SQUAMOUS EPITHELIAL CELL,UR FEW /HPF (NONE SEEN); WBC,URINE 0-3 /HPF (0-3)
[2016-10-19 17:38] LABS: ALKALINE PHOSPHATASE 48 U/L (50-136); ASPARTATE AMINOTRANSFERASE 26 U/L (15-37); BILIRUBIN,DIRECT < 0.1 mg/dL (0.0-0.2); BILIRUBIN,TOTAL 0.2 mg/dL (0.2-1.0); TOTAL PROTEIN, SERUM 7.3 g/dL (6.4-8.2)
[2016-10-19] MEDS ORDERED: LEVOFLOXACIN 750MG/D5W 150 ML IV ONE (17:52)
[2016-10-19 17:55] LABS: ALANINE AMINOTRANSFERASE 35 U/L (14-59)
--- NOTE | 2016-10-19 18:08 | NUR ---
labs drawn/bld cx's drawn, 2l 0.9 ns bolous infusing, levaquin ivpd stopped due to allergic rxn with a rasdh to body. md jimenez notified, approx 1/2 of bag was infused. monitor shows nsr. belongings list/admit order/mrsa nares completed. sbar report to araceli ozuna 2nd floor.
[2016-10-19] MEDS ORDERED: FAMOTIDINE. 20 MG/2 ML VIAL IV ONE ×2 (18:15→18:30)
[2016-10-19] MEDS ORDERED: AZITHROMYCIN 250 MG TABLET PO ONE (18:15)
[2016-10-19] MEDS ORDERED: CEFTRIAXONE 1 G in IV DEXTROSE 5% 50 ML IV ONE (18:15)
[2016-10-19] MEDS ORDERED: methylPREDNISolone SOD SUCC 125 MG/2 ML VIAL IV ONE (18:15)
[2016-10-19] MEDS ORDERED: diphenhydrAMINE 50 MG/1 ML VIAL IV ONE (18:15)
[2016-10-19] MEDS ORDERED: AZITHROMYCIN 250 MG TABLET ONE ×2 (18:29→18:49)
[2016-10-19] MEDS ORDERED: diphenhydrAMINE 50 MG/1 ML VIAL ONE (18:29)
[2016-10-19] MEDS ORDERED: CEFTRIAXONE 1 G VIAL ONE (18:29)
[2016-10-19] MEDS ORDERED: methylPREDNISolone SOD SUCC 125 MG/2 ML VIAL ONE (18:29)
--- NOTE | 2016-10-19 18:49 | NUR ---
so pt was tx'd for the allergic rxn to levaquin. the 2l 0.9ns completerd. presently rocefin infusing.
--- NOTE | 2016-10-19 19:08 | NUR ---
at approx 1829 after troponin of 6.8, asjked dr weeks if code sepsis to be called. he stated to not initiater it because , the pt has been alrweady treated fas a code sepsis with the antibiotics and 2l 0.9ns bolus.
--- NOTE | 2016-10-19 19:10 | NUR ---
dilan britt completed. pt to 2nd floor via bryan/monitor to rm 210. rosie ozuna took sbar report and took the pt.
--- NOTE | 2016-10-19 19:12 | NUR ---
araceli ozuna was called earlier to update on the allergic rxn to levaquin and the elavated lactic acid level.
[2016-10-19 19:25] VITALS: BP 119/80
--- NOTE | 2016-10-19 19:45 | NUR ---
RECEIVED PT FROM ER, BIB STAFF VIA [facility]. PT A/OX3, BUT FORGETFUL. NO ACUTE DISTRESS NOTED. NO C/ OF ANY TYPE OF PAIN. DENIES N/V. FAMILY AT BEDSIDE. O2 SAT WNL ON ROOM AIR. BREATHING EVEN AND UNLABORED. PLACED IN ROOM 210. MADE COMFORTABLE. ALL NEEDS ATTENDED AT THIS TIME. WILL CONTINUE TO MONITOR.
--- NOTE | 2016-10-19 20:01 | NUR ---
CRITICAL LAB OF LACTIC ACID 6.8 RECEIVED FROM JUVE FERRERA FROM LAB. CALLED LIBAN QUISPE, MADE AWARE WITH NEW ORDER FOR NS @100CC/HR. WILL CONTINUE TO MONITOR
[2016-10-19] MEDS: IV NS 1000 ML 1,000 ML IV PRN (20:21)
[2016-10-19] MEDS ORDERED: Z GUARD REMEDY PASTE 57 GM TUBE TOP PRN (20:45)
[2016-10-19] MEDS ORDERED: ONDANSETRON 4 MG/2 ML VIAL IV PRN (20:45)
[2016-10-19] MEDS ORDERED: MAGNESIUM HYDROXIDE 30 ML LIQUID UDC PO PRN (20:45)
[2016-10-19] MEDS ORDERED: ZOLPIDEM 5 MG TABLET PO PRN (20:45)
[2016-10-19] MEDS ORDERED: DEXTROSE 50% 50 ML DISP.SYRIN IV PRN (20:45)
[2016-10-19] MEDS ORDERED: HYDROCODONE/APAP 5-325MG TABLET PO PRN (20:45)
[2016-10-19] MEDS ORDERED: LEVETIRACETAM 500 MG TABLET PO ONE (22:00)
--- NOTE | 2016-10-19 22:15 | NUR ---
PT AND FAMILY REQUESTING KEPPRA FOR PT, PER FAMILY SHE DID NOT TAKE PM DOSE. LIBAN QUISPE MADE AWARE WITH NEW ORDER RECEIVED. NOTED AND CARRIED OUT.
[2016-10-19] MEDS ORDERED: LEVETIRACETAM 250 MG TABLET ONE (22:18)
[2016-10-19] MEDS: BLOOD SUGAR DIAGNOSTIC 1 EACH STRIP VI SCH (22:31)
[2016-10-19] MEDS: INSULIN REGULAR, HUMAN 300 UNIT/3 ML VIAL SQ PRN (22:33)
[2016-10-19] MEDS ORDERED: PIPERACILLIN SODIUM/TAZO 3.375 GM VIAL ONE (22:47)
[2016-10-19] MEDS ORDERED: ASPIRIN/DIPYRIDAMOLE 25/200 MG CAPSULE ONE (22:48)
[2016-10-19] MEDS: ASPIRIN/DIPYRIDAMOLE 25/200 MG CAPSULE PO SCH (22:49)
[2016-10-19] MEDS: PIPERACILLIN/TAZOBACTAM/D5W 3.375 G in PREMIXED 1 EACH IV SCH (22:50)
--- NOTE | 2016-10-19 22:50 | NUR ---
ZOZYN 3.375 GM GIVEN PER MD ORDER, SEE eMAR.
[2016-10-20] VITALS: BP 96/55
[2016-10-20 04:00] VITALS: BP 91/62
--- NOTE | 2016-10-20 06:06 | NUR ---
END OF SHIFT NOTE: PATIENT IN BED RESTING, AWAKE MOST OF THE NIGHT. COMPLIANT WITH CARE AND MEDS. ATB GIVEN PRESCRIBED WITH NO A/R NOTED. NO C/O PAIN. NO SEIZURE ACTIVITY NOTED/REPORTED. SEIZURE PRECAUTIONS AND ASPIRATION PRECAUTIONS IMPLEMENTED AND MAINTAINED. ON TELE, SR ON THE MONITOR, HR- 78. ALL NEEDS ATTENDED. CALL LIGHT IN REACH. SAFETY MAINTAINED. CONTINUE PLAN OF CARE.
[2016-10-20] MEDS: PIPERACILLIN/TAZOBACTAM/D5W 3.375 G in PREMIXED 1 EACH IV SCH ×3 (06:10→21:20)
[2016-10-20] MEDS: BLOOD SUGAR DIAGNOSTIC 1 EACH STRIP VI SCH ×4 (06:15→21:17)
[2016-10-20] MEDS: IV NS 1000 ML 1,000 ML IV PRN ×2 (06:16→22:58)
[2016-10-20 07:42] LABS: CREATININE 0.8 mg/dL (0.6-1.3); MAGNESIUM 1.4 mg/dL (1.8-2.4); PHOSPHOROUS 2.7 mg/dL (2.5-4.9); POTASSIUM 3.6 mmol/L (3.5-5.1)
[2016-10-20] MEDS: INSULIN REGULAR, HUMAN 300 UNIT/3 ML VIAL SQ PRN ×3 (07:46→21:21)
[2016-10-20 08:01] LABS: BASOPHILS % (AUTO) 0.3 % (0.0-2.0); EOSINOPHILS % (AUTO) 0.2 % (0.0-7.0); HEMATOCRIT 25.6 % (37-47); HEMOGLOBIN 8.7 G/DL (12.0-16.0); LYMPHOCYTES % (AUTO) 11.1 % (20.5-51.5); MEAN CORPUSCULAR HEMOGLOBIN 28.9 UUG (27.0-31.0); MEAN CORPUSCULAR HGB CONC 34 g/dL (32.0-37.0); MEAN CORPUSCULAR VOLUME 85.3 FL (81.0-99.0); MONOCYTES # (AUTO) 0.3 K/UL (0.1-1.30); MONOCYTES % (AUTO) 2.9 % (0.0-11.0); NEUTROPHILS % (AUTO) 85.5 % (38.5-71.5); PLATELET COUNT (AUTO) 321 K/UL (150-450); WHITE BLOOD COUNT (AUTO) 9.3 K/UL (4.0-11.2)
[2016-10-20] MEDS ORDERED: METFORMIN HCL 500 MG TABLET PO SCH (09:00)
[2016-10-20] MEDS: PANTOPRAZOLE SODIUM 40 MG TABLET.DR PO SCH (09:04)
[2016-10-20] MEDS: LEVETIRACETAM 500 MG TABLET PO SCH ×2 (09:04→21:19)
[2016-10-20] MEDS: ASPIRIN/DIPYRIDAMOLE 25/200 MG CAPSULE PO SCH ×2 (09:21→21:17)
[2016-10-20] MEDS: MAGNESIUM SULFATE/D5W 100 ML IV SCH ×4 (09:41→12:32)
[2016-10-20 11:01] VITALS: BP 100/62
[2016-10-20 15:01] VITALS: BP 102/56
[2016-10-20] MEDS ORDERED: AZITHROMYCIN IV 250 MG in IV DEXTROSE 5% 250 ML IV SCH (18:00)
[2016-10-20 20:04] VITALS: BP 97/67
[2016-10-20] MEDS: ATORVASTATIN 40 MG TABLET PO SCH (21:18)
[2016-10-20] MEDS: ACETAMINOPHEN 325 MG TABLET PO PRN (21:18)
[2016-10-21 00:01] VITALS: BP 91/61
[2016-10-21 04:00] VITALS: BP 91/58
--- NOTE | 2016-10-21 05:58 | NUR ---
END OF SHIFT NOTE: Pt remains alet and oriented to self and place, but very forgetful. Slept well, no acute distress per shift. Denied pain. No evidence of seizure activity noted/reported. Seizure and aspiration precautions implemented, and maintained. On tele, sr on the monitor, hr-70. Kept clean and dry. All needs met. On fall precautions. Call light in reach and safety maintained.
[2016-10-21] MEDS: PIPERACILLIN/TAZOBACTAM/D5W 3.375 G in PREMIXED 1 EACH IV SCH (06:20)
[2016-10-21] MEDS: PANTOPRAZOLE SODIUM 40 MG TABLET.DR PO SCH (06:20)
[2016-10-21] MEDS: BLOOD SUGAR DIAGNOSTIC 1 EACH STRIP VI SCH ×4 (06:21→23:18)
[2016-10-21 07:13] LABS: CREATININE 0.8 mg/dL (0.6-1.3); MAGNESIUM 2.2 mg/dL (1.8-2.4); POTASSIUM 3.9 mmol/L (3.5-5.1)
--- NOTE | 2016-10-21 07:32 | NUR ---
PT RECEIVED IN BED AWAKE.PT IS AXOX3.NO C/O PAIN NOTED.V/S ARE STABLE ,BREAKFAST SERVED.
[2016-10-21] MEDS: METFORMIN HCL 500 MG TABLET PO SCH (08:04)
[2016-10-21] MEDS: LEVETIRACETAM 500 MG TABLET PO SCH ×2 (08:04→23:17)
[2016-10-21] MEDS: ASPIRIN/DIPYRIDAMOLE 25/200 MG CAPSULE PO SCH ×2 (08:05→23:18)
--- NOTE | 2016-10-21 10:00 | NUR ---
PT SEEN BY LIBAN PARKER
--- NOTE | 2016-10-21 10:38 | NUR ---
PT SEEN BY DR FOX
[2016-10-21] MEDS ORDERED: LORAZEPAM 2 MG/1 ML VIAL IV ONE (10:45)
--- NOTE | 2016-10-21 10:58 | NUR ---
PT WENT TO [facility] FOR CT HEAD VIA AMBULANCES.
[2016-10-21 11:05] VITALS: BP 100/67
[2016-10-21] MEDS ORDERED: LEVETIRACETAM IV 1,000 MG in IV DEXTROSE 5% 100 ML IV ONE (11:30)
--- NOTE | 2016-10-21 12:20 | NUR ---
PT IS BACK FROM CT SCAN VIA AMBULANCES IN STABLE CONDITION.V/S ARE STABLE.FAMILY AT BED SIDE.LUNCH SERVED.
[2016-10-21 12:28] VITALS: BP 96/59
[2016-10-21 12:45] VITALS: BP 98/48
[2016-10-21 13:10] LABS: ALANINE AMINOTRANSFERASE 31 U/L (14-59); ALKALINE PHOSPHATASE 45 U/L (50-136); ASPARTATE AMINOTRANSFERASE 24 U/L (15-37); BILIRUBIN,DIRECT < 0.1 mg/dL (0.0-0.2); BILIRUBIN,TOTAL 0.2 mg/dL (0.2-1.0); TOTAL PROTEIN, SERUM 6.8 g/dL (6.4-8.2)
--- NOTE | 2016-10-21 13:57 | NUR ---
PT LACTIC ACID IS 8.6 MD MADE AWARE.
[2016-10-21] MEDS ORDERED: IV NS 1000 ML 1,000 ML IV ONE (14:00)
[2016-10-21 15:02] VITALS: BP 98/58
--- NOTE | 2016-10-21 15:40 | NUR ---
PT LACTIC ACID IS 7.3 MD MADE AWARE.
[2016-10-21] MEDS: IV NS 1000 ML 1,000 ML IV PRN (16:34)
--- NOTE | 2016-10-21 19:00 | NUR ---
Received report from ZULY Ogden
--- NOTE | 2016-10-21 19:30 | NUR ---
Awake when received, Serbian speaking only, at bedside interpreting. Denies any pain/discomforts at this time. Seizure and fall precaution maintained. Continue care as planned.
--- NOTE | 2016-10-21 19:35 | NUR ---
To [facility] via Ambulance for MRI and MRA of the brain as ordered.
--- NOTE | 2016-10-21 21:55 | NUR ---
Back from MRI. Denies any pain at this time.
--- NOTE | 2016-10-21 22:13 | NUR ---
EEG procedure at bedside
[2016-10-21] MEDS: ATORVASTATIN 40 MG TABLET PO SCH (23:18)
[2016-10-21] MEDS: INSULIN REGULAR, HUMAN 300 UNIT/3 ML VIAL SQ PRN (23:20)
[2016-10-22] VITALS: BP 105/68
--- NOTE | 2016-10-22 00:52 | NUR ---
Left message for Dr. Siddhartha Ovalles regarding MRA with contrast that was not done because patient was so very anxious at that time. Anticipating MD to call back.
[2016-10-22 04:00] VITALS: BP 90/60
[2016-10-22] MEDS: IV NS 1000 ML 1,000 ML IV PRN ×3 (06:12→23:57)
[2016-10-22] MEDS: BLOOD SUGAR DIAGNOSTIC 1 EACH STRIP VI SCH ×4 (06:21→20:52)
[2016-10-22] MEDS: PANTOPRAZOLE SODIUM 40 MG TABLET.DR PO SCH (06:21)
[2016-10-22 06:32] LABS: BASOPHILS % (AUTO) 0.5 % (0.0-2.0); EOSINOPHILS # (AUTO) 0.1 K/uL (0.0-0.7); HEMATOCRIT 25.9 % (37-47); HEMOGLOBIN 8.6 G/DL (12.0-16.0); LYMPHOCYTES # (AUTO) 2.1 K/UL (0.8-4.8); LYMPHOCYTES % (AUTO) 23.4 % (20.5-51.5); MEAN CORPUSCULAR HEMOGLOBIN 28.3 UUG (27.0-31.0); MEAN CORPUSCULAR HGB CONC 33 g/dL (32.0-37.0); MEAN CORPUSCULAR VOLUME 85.2 FL (81.0-99.0); MONOCYTES # (AUTO) 0.9 K/UL (0.1-1.30); MONOCYTES % (AUTO) 9.4 % (0.0-11.0); NEUTROPHILS % (AUTO) 65.7 % (38.5-71.5); PLATELET COUNT (AUTO) 347 K/UL (150-450); RED BLOOD CELL COUNT(AUTO) 3.04 MIL/UL (4.2-5.4); WHITE BLOOD COUNT (AUTO) 9.1 K/UL (4.0-11.2)
[2016-10-22 06:44] LABS: CREATININE 0.6 mg/dL (0.6-1.3); MAGNESIUM 1.9 mg/dL (1.8-2.4); POTASSIUM 3.5 mmol/L (3.5-5.1)
--- NOTE | 2016-10-22 07:09 | NUR ---
Report given to AM nurse.
[2016-10-22] MEDS: METFORMIN HCL 500 MG TABLET PO SCH (08:00)
[2016-10-22] MEDS: LEVETIRACETAM 500 MG TABLET PO SCH ×2 (08:15→20:23)
[2016-10-22] MEDS: ASPIRIN/DIPYRIDAMOLE 25/200 MG CAPSULE PO SCH ×2 (08:16→20:34)
--- NOTE | 2016-10-22 08:19 | NUR ---
METFORMIN HELD DUE TO PT RECEIVING IV CONTRAST LAST NIGHT FOR MRI. PT BS 105
[2016-10-22] MEDS ORDERED: LORAZEPAM 2 MG/1 ML VIAL IV PRN ×2 (11:45→13:30)
[2016-10-22 12:02] VITALS: BP 108/67
--- NOTE | 2016-10-22 12:51 | NUR ---
ORDERS FOR PT TO GO TO [facility] FOR REPEATED MRI TODAY. AMBULANCE TO [facility] AT 1430. ORDERS TO GIVE ATIVAN PRIOR TO LEAVING FACILITY, WILL FOLLOW THROUGH
--- NOTE | 2016-10-22 14:43 | NUR ---
PT LEAVING VIA AMBULANCE TO [facility] FOR MRI, ATIVAN WAS GIVEN PRIOR PER ORDERS, MONITORED FOR 15 MINUTES AND PT HAND TREMOR MINIMIZED, PT WAS ABLE TO FOLLOW COMMANDS, RAISE ARM AND SQUEEZE BALL
[2016-10-22 16:03] VITALS: BP 111/71
[2016-10-22] MEDS: ACETAMINOPHEN 325 MG TABLET PO PRN (16:13)
--- NOTE | 2016-10-22 16:26 | NUR ---
PT BACK AND TOLERATED MRI WELL. PT COMPLAINING OF HEADACHE 5/10 AND HAS 100.0 TEMP. BS 149 BP STABLE TYLENOL GIVEN, WILL CONTINUE TO MONITOR
[2016-10-22] MEDS: INSULIN REGULAR, HUMAN 300 UNIT/3 ML VIAL SQ PRN (16:43)
--- NOTE | 2016-10-22 18:32 | NUR ---
PT STATES HEADACHE HAS GONE DOWN TO 08/01. TEMP 99.0. FAMILY AT BEDSIDE, NO ACUTE DISTRESS, IV INTACT AND PATENT INFUSING WELL, ALL SAFETY AND COMFORT MEASURES MAINTAINED THROUGHOUT SHIFT, CALL LIGHT IN REACH
[2016-10-22 20:20] VITALS: BP 95/63
[2016-10-22] MEDS: ATORVASTATIN 40 MG TABLET PO SCH (20:23)
--- NOTE | 2016-10-22 22:00 | NUR ---
Night Accu check result 134, patient refused insulin coverage.
[2016-10-23 00:20] VITALS: BP 100/63
[2016-10-23 04:00] VITALS: BP 105/63
[2016-10-23] MEDS: PANTOPRAZOLE SODIUM 40 MG TABLET.DR PO SCH (06:05)
[2016-10-23] MEDS: BLOOD SUGAR DIAGNOSTIC 1 EACH STRIP VI SCH ×4 (06:43→21:17)
[2016-10-23 07:10] LABS: BASOPHILS % (AUTO) 0.5 % (0.0-2.0); EOSINOPHILS # (AUTO) 0.2 K/uL (0.0-0.7); EOSINOPHILS % (AUTO) 2.6 % (0.0-7.0); HEMATOCRIT 24.1 % (37-47); LYMPHOCYTES # (AUTO) 1.6 K/UL (0.8-4.8); LYMPHOCYTES % (AUTO) 27.4 % (20.5-51.5); MEAN CORPUSCULAR HEMOGLOBIN 28.2 UUG (27.0-31.0); MEAN CORPUSCULAR HGB CONC 33 g/dL (32.0-37.0); MEAN CORPUSCULAR VOLUME 85.5 FL (81.0-99.0); MONOCYTES # (AUTO) 0.7 K/UL (0.1-1.30); NEUTROPHILS # (AUTO) 3.4 K/UL (1.8-8.9); NEUTROPHILS % (AUTO) 58.5 % (38.5-71.5); PLATELET COUNT (AUTO) 285 K/UL (150-450); RED BLOOD CELL COUNT(AUTO) 2.82 MIL/UL (4.2-5.4); WHITE BLOOD COUNT (AUTO) 5.9 K/UL (4.0-11.2)
[2016-10-23 07:18] LABS: CREATININE 0.7 mg/dL (0.6-1.3); POTASSIUM 3.9 mmol/L (3.5-5.1)
[2016-10-23] MEDS: METFORMIN HCL 500 MG TABLET PO SCH (08:00)
[2016-10-23] MEDS: ASPIRIN/DIPYRIDAMOLE 25/200 MG CAPSULE PO SCH ×2 (08:23→20:11)
[2016-10-23] MEDS: IV NS 1000 ML 1,000 ML IV PRN ×2 (08:23→21:26)
[2016-10-23] MEDS: LEVETIRACETAM 500 MG TABLET PO SCH ×2 (08:23→20:11)
--- NOTE | 2016-10-23 09:57 | NUR ---
STOOL SAMPLE SENT TO LAB
[2016-10-23 10:49] LABS: *OCCULT BLOOD STOOL NEGATIVE (NEGATIVE)
--- NOTE | 2016-10-23 11:36 | NUR ---
DR PALACIOS IN TO SEE PT
[2016-10-23] MEDS: INSULIN REGULAR, HUMAN 300 UNIT/3 ML VIAL SQ PRN ×2 (11:49→21:25)
[2016-10-23 11:55] VITALS: BP 103/70
--- NOTE | 2016-10-23 12:40 | NUR ---
LACTIC ACID 3.9 CALLED FROM LAB, LIBAN VOGT MADE AWARE NO ORDERS. TRENDING DOWN
[2016-10-23 13:25] LABS: IRON, SERUM 17 ug/dL (50-175)
[2016-10-23 14:01] LABS: FERRITIN 10 ng/mL (8-252)
[2016-10-23 14:58] LABS: BILIRUBIN,DIRECT < 0.1 mg/dL (0.0-0.2); BILIRUBIN,TOTAL 0.2 mg/dL (0.2-1.0)
[2016-10-23 16:07] VITALS: BP 101/67
[2016-10-23 19:00] VITALS: BP_SYST 111; BP_SYST 120; BP_DIAS 68; BP_DIAS 71
[2016-10-23] MEDS: ATORVASTATIN 40 MG TABLET PO SCH (20:12)
[2016-10-24 00:07] VITALS: BP 106/71
[2016-10-24] MEDS: IV NS 1000 ML 1,000 ML IV PRN (05:30)
[2016-10-24 06:00] VITALS: BP 94/65
[2016-10-24] MEDS: PANTOPRAZOLE SODIUM 40 MG TABLET.DR PO SCH (06:06)
--- NOTE | 2016-10-24 06:30 | NUR ---
Patient rested well, no signs of seizures noted. IVF maintained, kept comfortable.
[2016-10-24] MEDS: BLOOD SUGAR DIAGNOSTIC 1 EACH STRIP VI SCH ×2 (06:36→11:59)
--- NOTE | 2016-10-24 07:15 | NUR ---
PATIENT RECEIVED IN ROOM RESTING ALERT AWAKE IN NO ACUTE DISTRESS. DENIES PAIN. RESPIRATIONS EVEN AND UNLABORED. FALL PRECAUTIONS IN PLACE.
[2016-10-24] MEDS: LEVETIRACETAM 500 MG TABLET PO SCH (08:06)
[2016-10-24] MEDS: METFORMIN HCL 500 MG TABLET PO SCH (08:06)
[2016-10-24] MEDS: ASPIRIN/DIPYRIDAMOLE 25/200 MG CAPSULE PO SCH (08:07)
[2016-10-24 11:03] LABS: BASOPHILS % (AUTO) 0.2 % (0.0-2.0); EOSINOPHILS # (AUTO) 0.1 K/uL (0.0-0.7); EOSINOPHILS % (AUTO) 1.3 % (0.0-7.0); HEMATOCRIT 25.8 % (37-47); HEMOGLOBIN 8.5 G/DL (12.0-16.0); LYMPHOCYTES # (AUTO) 1.5 K/UL (0.8-4.8); MEAN CORPUSCULAR HEMOGLOBIN 27.7 UUG (27.0-31.0); MEAN CORPUSCULAR HGB CONC 33 g/dL (32.0-37.0); MEAN CORPUSCULAR VOLUME 84.1 FL (81.0-99.0); MONOCYTES % (AUTO) 11.7 % (0.0-11.0); NEUTROPHILS # (AUTO) 5.5 K/UL (1.8-8.9); NEUTROPHILS % (AUTO) 68.8 % (38.5-71.5); PLATELET COUNT (AUTO) 349 K/UL (150-450); RED BLOOD CELL COUNT(AUTO) 3.07 MIL/UL (4.2-5.4); WHITE BLOOD COUNT (AUTO) 8.1 K/UL (4.0-11.2)
[2016-10-24 11:07] LABS: CREATININE 0.8 mg/dL (0.6-1.3); POTASSIUM 3.8 mmol/L (3.5-5.1)
[2016-10-24 12:06] VITALS: BP 94/69
[2016-10-24] MEDS ORDERED: LEVE500T9 PO (13:45)
--- NOTE | 2016-10-24 16:22 | NUR ---
DISCHARGING PATIENT HOME IN A STABLE CONDITION. STROKE TEACHING PROVIDED. DISCHARGE INSTRUCTIONS PROVIDED. LIST OF BELONGINGS SIGNED AND ALL WAS TAKEN. PATIENT LEAVING VIA PRIVATE CAR ACCOMPANIED BY DAUGHTERJO ANN. Addendum: 10/24/16 at 1643 by JASON ALSTON RN IV REMOVED, PRESSURE APPLIED AND HEMOSTASIS ACHIEVED.
== END 2016-10-24 16:15 | disposition home or self-care (01) | DRG 53 ==
LOC: ER 15:51 → TELE 18:25 → MED 10-23 15:35
PROVIDERS: ADMIT Nurse Practitioner Acute Care; ATTEND Nurse Practitioner Acute Care
DX: G40.909 Epilepsy, unspecified, not intractable, without status epilepticus (principal); E87.2 Acidosis; D68.59 Other primary thrombophilia; R53.2 Functional quadriplegia; E87.1 Hypo-osmolality and hyponatremia; E11.9 Type 2 diabetes mellitus without complications; I10 Essential (primary) hypertension; D63.8 Anemia in other chronic diseases classified elsewhere; D64.9 Anemia, unspecified; E78.5 Hyperlipidemia, unspecified; I69.354 Hemiplegia and hemiparesis following cerebral infarction affecting left non-dominant side; Z79.84 Long term (current) use of oral hypoglycemic drugs; Z79.899 Other long term (current) drug therapy
CPT/HCPCS: 36415; 70030-TC; 70450; 70551; 70553; 71010; 83550; 83605; 83735; 84100; 85025; 85730; 87040; 87086; 93005; 97110; 97112; 97116; 97161; 97165; 97530; 97535; A4663; J0456; J0696; J1200; J1815; J1953; J1956; J2060; J2543; J2930; J3475; J3490; J7030; J7060; Q0144

== ENCOUNTER 2017-01-13 22:17 | Inpatient (IN) | payer MEDICAID ==
[~2017-01-13] VITALS: Ht 188 cm; Wt 39.0 kg
[~2017-01-13 22:17] MED LIST changes: -ASPI81TA31 PO; -CHOL100030 PO; -HYDR-3326 PO; -LORA10TA7 PO; +METF10002 PO
--- NOTE | 2017-01-13 22:50 | NUR ---
Patient walked in to ER, with son and daughter, c/o seizure activity. The son states that at approximately 2100 patient moved her right arm up which they beleived was a result of seizure activity. Patient does not remember the incident but had no post-ictal confusion after the occurence. To room 4A, patient placed on monitor, side-rails padded for safety.
--- NOTE | 2017-01-13 23:40 | NUR ---
Call placed to [facility], Dr. Antonio will be paged.
[2017-01-14 00:53] LABS: BASOPHILS # (AUTO) 0.1 K/uL (0.0-8.0); BASOPHILS % (AUTO) 0.6 % (0.0-2.0); EOSINOPHILS # (AUTO) 0.1 K/uL (0.0-0.7); HEMATOCRIT 28.9 % (37-47); HEMOGLOBIN 9.3 G/DL (12.0-16.0); LYMPHOCYTES # (AUTO) 3.4 K/UL (0.8-4.8); LYMPHOCYTES % (AUTO) 30.2 % (20.5-51.5); MEAN CORPUSCULAR HEMOGLOBIN 24.3 UUG (27.0-31.0); MEAN CORPUSCULAR HGB CONC 32 g/dL (32.0-37.0); MEAN CORPUSCULAR VOLUME 75.6 FL (81.0-99.0); MONOCYTES # (AUTO) 0.9 K/UL (0.1-1.30); MONOCYTES % (AUTO) 8.4 % (0.0-11.0); NEUTROPHILS # (AUTO) 6.8 K/UL (1.8-8.9); NEUTROPHILS % (AUTO) 59.8 % (38.5-71.5); PLATELET COUNT (AUTO) 336 K/UL (150-450); RED BLOOD CELL COUNT(AUTO) 3.83 MIL/UL (4.2-5.4); WHITE BLOOD COUNT (AUTO) 11.3 K/UL (4.0-11.2)
[2017-01-14 00:58] LABS: CREATININE 0.7 mg/dL (0.6-1.3)
[2017-01-14 01:11] LABS: BILIRUBIN,DIRECT 0.1 mg/dL (0.0-0.2); BILIRUBIN,TOTAL 0.2 mg/dL (0.2-1.0)
--- NOTE | 2017-01-14 01:11 | NUR ---
Pt. admitted to TELE, under care of Dr. Florez Belongs List completed
[2017-01-14 01:20] VITALS: BP 111/71
--- NOTE | 2017-01-14 01:20 | NUR ---
RECEIVED PATIENT FROM ER VIA GURNEY. USHERED TO ROOM AND PLACED COMFORTABLY IN BED. TELE LEADS PLACED. KYRGYZ SPEAKING ONLY. TELE SR. NO ACUTE DISTRESS NOTED. CALL LIGHT WITHIN REACH. RAILS PADDED FOR SAFETY. NO SEIZURE ACTIVITY PRESENT. IV ON THE R FA PATENT AND INTACT. ABLE TO MAKE NEEDS KNOWN BUT DIFFICULT BECAUSE OF THE LANGUAGE BARRIER. A&O X'S 4. BELONGINGS LIST COMPLETED. WILL CONTINUE TO MONITOR. VSS.
[2017-01-14 04:00] VITALS: BP 108/75
--- NOTE | 2017-01-14 04:30 | NUR ---
PAGESamantha AND SPOKE DR. DONALD BECAUSE NO DIET ORDER. ADVISED TO WAIT TILL THE AM SINCE PATIENT DOES NOT WISH TO EAT AT THE MOMENT.
[2017-01-14 06:32] LABS: CREATININE 0.7 mg/dL (0.6-1.3); MAGNESIUM 1.6 mg/dL (1.8-2.4); POTASSIUM 4.1 mmol/L (3.5-5.1)
--- NOTE | 2017-01-14 06:38 | NUR ---
NO CHANGES T/O THE NIGHT.SLEPT INTERMITTENTLY T/O THE NIGHT. NO SEIZURE EVENTS NOTED. PATIENT IS AMBULATORY. NO ACUTE DISTRESS NOTED. CALL LIGHT WITHIN REACH. FAROESE SPEAKING ONLY. TELE NSR. SEIZURE PRECAUTIONS MAINTAINED T/O SHIFT.ON IVF INFUSING.RA.VSS. ALL NEEDS MET.AWAITING DIET ORDERS. PAGED AND SPOKE TO DR. DONALD AT 0430, STATED TO WAIT TILL THE AM SINCE SHE IS NOT ASKING TO EAT ANYTHING AT THE MOMENT.
--- NOTE | 2017-01-14 06:45 | NUR ---
LAB CALLED TO REPORT CRITICAL VALUE OF LACTIC ACID OF 2.8. READ BACK PROTOCOL FOLLOWED. SPOKE TO MARIA D. PAGED TO ALERT .
--- NOTE | 2017-01-14 07:25 | NUR ---
DR. MOTTA CALLED BACK. INFORMED MD ABOUT CRITICAL LAB RESULTS, LACTIC ACID 2.8. NO ORDERS AT THIS TIME. DIET ORDER IS 1800 KCAL.
--- NOTE | 2017-01-14 09:04 | NUR ---
PT AWAKE, ALERT, AND ORIENTED. DIET ORDER RECEIVED, PT SITTING UP, EATING COMFORTABLY. ALL MORNING MEDICATIONS PROVIDED. LEFT SIDED WEAKNESS OBSERVED. CALL LIGHT PLACED WITHIN REACH. WILL CONTINUE TO MONITOR.
[2017-01-14 11:10] LABS: BASOPHILS % (AUTO) 0.5 % (0.0-2.0); EOSINOPHILS # (AUTO) 0.1 K/uL (0.0-0.7); EOSINOPHILS % (AUTO) 1.1 % (0.0-7.0); HEMATOCRIT 29.1 % (37-47); HEMOGLOBIN 9.1 G/DL (12.0-16.0); LYMPHOCYTES # (AUTO) 2.9 K/UL (0.8-4.8); MEAN CORPUSCULAR HGB CONC 31 g/dL (32.0-37.0); MEAN CORPUSCULAR VOLUME 76.7 FL (81.0-99.0); MONOCYTES # (AUTO) 0.8 K/UL (0.1-1.30); MONOCYTES % (AUTO) 9.6 % (0.0-11.0); NEUTROPHILS # (AUTO) 4.4 K/UL (1.8-8.9); NEUTROPHILS % (AUTO) 52.8 % (38.5-71.5); PLATELET COUNT (AUTO) 319 K/UL (150-450); RED BLOOD CELL COUNT(AUTO) 3.79 MIL/UL (4.2-5.4); WHITE BLOOD COUNT (AUTO) 8.2 K/UL (4.0-11.2)
[2017-01-14 11:31] VITALS: BP 103/68
--- NOTE | 2017-01-14 13:06 | NUR ---
AMBULATED PT TO RESTROOM FOR URINE, ATTEMPTED TO GO BUT NOTHING IN HAT. PUT PT BACK TO BED WITH WATER, WILL RETURN TO TRY AGAIN
--- NOTE | 2017-01-14 13:34 | NUR ---
PT SON CALLED AND SAID PT HAVING A REACTION. WALKED IN PT IN NO RESP DISTRESS, HAS SEVERAL WELTS ON FACE, NO SIGNS OF WELTS ANYWHERE ELSE ON BODY. VS STABLE NO COMPLAINTS OF SHORTNESS OF BREATH OR ITCHINESS. LIBAN PEREZ CALLED AND MADE AWARE, ORDERED BENADRYL 25MG IV. MEDICATION GIVEN AND LIBAN PEREZ AT BEDSIDE TO ASSESS PT, WILL PLACE PT BACK ON TELEMETRY PER ORDERS AND CONTINUE TO MONITOR
--- NOTE | 2017-01-14 14:03 | NUR ---
AT 1343 FAMILY CAME RUNNING OUT OF ROOM YELLING FOR HELP, CHARGE NURSE NICOLA, FIRST ONE IN ROOM, UPON ENTRY PT WAS HAVING GRAND MAL SEIZURE, SEIZURE LASTED ABOUT 15 SECONDS. RAPID RESPONSE WAS CALLED, VITALS BP 126/76 HR 115 SAT 99% ON RA. PT WAS SUCTION AND PUT ON O2. ATIVAN 1MG WAS GIVEN PER ORDERS. ANA, KITCHEN PORTER WAS AT BEDSIDE, ORDERED TO NOT GIVE DOSE OF PREDNISONE THAT WAS PREVIOUSLY ORDERED. PT RESTLESS AT THIS TIME, FAMILY AT BEDSIDE WILL MONITOR CLOSELY
[2017-01-14 14:42] VITALS: BP 135/73
[2017-01-14 15:29] VITALS: BP 113/77
--- NOTE | 2017-01-14 16:23 | NUR ---
PT WENT DOWN FOR CT, SITTER ACCOMPANIED.
--- NOTE | 2017-01-14 17:07 | NUR ---
URINE SAMPLE SENT TO LAB.
[2017-01-14 17:35] LABS: *BILIRUBIN,URIN NEGATIVE (NEGATIVE); *BLOOD, URINE Trace-lysed (NEGATIVE); *CLARITY,URINE CLEAR (CLEAR); *COLOR,URINE LIGHT YELLOW (YELLOW); *KETONES,URINE NEGATIVE (NEGATIVE); *PROTEIN,URINE NEGATIVE (NEGATIVE); *UROBILINOGEN,URINE 0.2 E.U./dl (NORMAL); LEUKOCYTE ESTERASE ,URINE NEGATIVE (NEGATIVE); NITRITE, URINE NEGATIVE (NEGATIVE); PH,URINE 6.5 (5.0-8.0); UGLUCOSE NEGATIVE (NEGATIVE)
[2017-01-14 18:09] LABS: SQUAMOUS EPITHELIAL CELL,UR FEW /HPF (NONE SEEN); WBC,URINE 0-3 /HPF (0-3)
--- NOTE | 2017-01-14 18:39 | NUR ---
PT AWAKE, ALERT, AND SITTING COMFORTABLY IN BED. NO DISTRESS NOTED AT THIS TIME. ALL SAFETY MEASURES ATTENDED TO. FAMILY AND SITTER OBSERVING AT BEDSIDE. CALL LIGHT WITHIN REACH. WILL CONTINUE TO MONITOR.
[2017-01-14 19:00] VITALS: BP 97/66
--- NOTE | 2017-01-14 19:30 | NUR ---
received patient laying in bed. family and 1:1 sitter at bedside. suction at bedside. padded rails for safety. no acute distress noted, no seizure like symptoms noted. safety initiated. call light within reach. will review medications and will administer as ordered. will continue to monitor.
[2017-01-15 00:15] VITALS: BP 86/45
--- NOTE | 2017-01-15 01:20 | NUR ---
CONCERNED ABOUT B/P RUNNING LOW 76/45 85/52 86/45 PAGED BANG LEONARDO MD WATER USE INSPECTOR DR. DONALD. WAITING FOR A RETURN CALL.
--- NOTE | 2017-01-15 01:25 | NUR ---
SPOKE TO DR. DONALD. SBAR GIVEN. B/P VALUES GIVEN, DR. DONALD ASKS IF PTNT IS ASYMPTOMATIC, PATIENT IS NOT. DR. DONALD SAYS "LEAVE IT ALONE, ITS HER BASELINE". NO ORDERS AT THE MOMENT.
[2017-01-15 04:00] VITALS: BP 100/55
[2017-01-15 06:06] LABS: BASOPHILS % (AUTO) 0.2 % (0.0-2.0); EOSINOPHILS # (AUTO) 0.1 K/uL (0.0-0.7); EOSINOPHILS % (AUTO) 0.9 % (0.0-7.0); HEMATOCRIT 28.6 % (37-47); LYMPHOCYTES # (AUTO) 2.3 K/UL (0.8-4.8); LYMPHOCYTES % (AUTO) 23.1 % (20.5-51.5); MEAN CORPUSCULAR HGB CONC 32 g/dL (32.0-37.0); MEAN CORPUSCULAR VOLUME 76.1 FL (81.0-99.0); MONOCYTES # (AUTO) 0.7 K/UL (0.1-1.30); MONOCYTES % (AUTO) 7.2 % (0.0-11.0); NEUTROPHILS % (AUTO) 68.6 % (38.5-71.5); PLATELET COUNT (AUTO) 297 K/UL (150-450); RED BLOOD CELL COUNT(AUTO) 3.76 MIL/UL (4.2-5.4); WHITE BLOOD COUNT (AUTO) 10.1 K/UL (4.0-11.2)
[2017-01-15 06:14] LABS: BILIRUBIN,TOTAL 0.3 mg/dL (0.2-1.0); CREATININE 0.6 mg/dL (0.6-1.3); MAGNESIUM 2.1 mg/dL (1.8-2.4); PHOSPHOROUS 3.4 mg/dL (2.5-4.9)
--- NOTE | 2017-01-15 06:24 | NUR ---
PATIENT SLEPT INTERMITTENTLY T/O SHIFT. NO ACUTE DISTRESS NOTED. TELE SR STACH. B/P RAN LOW T/O SHIFT. MD AWARE. IVF INFUSING AT 75 MLS/HR. SAFETY AND COMFORT MEASURES MAINTAINED T/O SHIFT. CALL LIGHT WITHIN REACH.1:1 SITTER AT BEDSIDE. ALL NEEDS MET.
--- NOTE | 2017-01-15 07:45 | NUR ---
PT. AWAKE, ALERT, AND ORIENTED WITH FAMILY AT BEDSIDE. NO ACUTE DISTRESS NOTED.1:1 SITTER MAINTAINED. ALL COMFORT AND SAFETY MEASURES IMPLEMENTED. CALL LIGHT WITHIN REACH. WILL CONTINUE TO MONITOR.
[2017-01-15 10:00] VITALS: BP 96/62
[2017-01-15 11:30] VITALS: BP 99/62
[2017-01-15 13:05] VITALS: BP 100/61
[2017-01-15] MEDS ORDERED: LEVE500T9 PO (13:35)
[2017-01-15] MEDS ORDERED: GUAI5SYR PO (13:35)
[2017-01-15] MEDS ORDERED: Blood Sugar Diagnostic VI (13:35)
[2017-01-15] MEDS ORDERED: INSU100V28 SQ (13:35)
--- NOTE | 2017-01-15 15:43 | NUR ---
DISCHARGE PROTOCOL FOLLOWED. IV REMOVED WITH NO REDNESS OR IRRITATION NOTED. . PT TEACHING COMPLETE, WITH NO FURTHER QUESTIONS. PHARMACIST ASSISTED ON TEACHING ABOUT PRESCRIPTION MEDICATIONS. PT TAKEN DOWN IN WHEELCHAIR WITH TRANSMISSION OPERATOR, LEFT IN PRIVATE CAR WITH FAMILY.
== END 2017-01-15 15:30 | disposition home or self-care (01) | DRG 53 ==
LOC: ER 22:18 → TELE 01-14 00:15 → MED 01-15 11:00
PROVIDERS: ADMIT Internal Medicine; ATTEND Nurse Practitioner Acute Care
DX: G40.909 Epilepsy, unspecified, not intractable, without status epilepticus (principal); E87.2 Acidosis; I67.82 Cerebral ischemia; I69.398 Other sequelae of cerebral infarction; I69.354 Hemiplegia and hemiparesis following cerebral infarction affecting left non-dominant side; E87.1 Hypo-osmolality and hyponatremia; E83.42 Hypomagnesemia; E78.5 Hyperlipidemia, unspecified; Z79.899 Other long term (current) drug therapy; T38.3X5A Adverse effect of insulin and oral hypoglycemic [antidiabetic] drugs, initial encounter; Y92.009 Unspecified place in unspecified non-institutional (private) residence as the place of occurrence of the external cause; D72.829 Elevated white blood cell count, unspecified; Z87.440 Personal history of urinary (tract) infections; D53.9 Nutritional anemia, unspecified; R23.8 Other skin changes; T36.0X5A Adverse effect of penicillins, initial encounter; Y92.230 Patient room in hospital as the place of occurrence of the external cause; E11.65 Type 2 diabetes mellitus with hyperglycemia; G93.89 Other specified disorders of brain
CPT/HCPCS: 36415; 70030-TC; 70450; 71010; 83605; 83735; 84100; 84443; 85025; 85730; 87086; 92610; 93005; A4663; J1200; J1815; J2060; J2543; J3475; J7030; J7040

== ENCOUNTER 2018-08-23 09:35 | Inpatient (IN) | payer MEDICAID ==
[~2018-08-23] VITALS: Ht 160 cm; Wt 40.8 kg
[~2018-08-23 09:35] MED LIST changes: +Blood Sugar Diagnostic VI; +GUAI5SYR PO; +INSU100V28 SQ; -METF10002 PO
--- NOTE | 2018-08-23 10:00 | NUR ---
Pt resting with NAD noted.
[2018-08-23] MEDS ORDERED: LEVETIRACETAM IV 500 MG in IV DEXTROSE 5% 100 ML IV ONE (10:15)
[2018-08-23] MEDS ORDERED: IV NORMAL SALINE 1000 ML BAG IV ONE (10:15)
[2018-08-23] MEDS ORDERED: ASPI81TA31 PO (10:18)
[2018-08-23] MEDS ORDERED: MULT1TAB73 PO (10:18)
[2018-08-23] MEDS ORDERED: LEVE1000 PO (10:18)
[2018-08-23] MEDS ORDERED: PYRI25TA4 PO (10:18)
[2018-08-23] MEDS ORDERED: SENN-168 PO (10:31)
[2018-08-23] MEDS ORDERED: DOCU100C36 PO (10:31)
[2018-08-23] MEDS ORDERED: LACO200T2 PO (10:31)
[2018-08-23] MEDS ORDERED: ACET-73 PO (10:31)
[2018-08-23] MEDS ORDERED: QUET25TA PO (10:31)
[2018-08-23] MEDS ORDERED: [UNRECOGNIZED DRUG - CODE] PO (10:31)
[2018-08-23] MEDS ORDERED: INSU100C SQ (10:31)
[2018-08-23] MEDS ORDERED: QUET100T PO (10:31)
[2018-08-23] MEDS ORDERED: FERR325T28 PO (10:31)
[2018-08-23 10:39] LABS: BASOPHILS % (AUTO) 0.3 % (0.0-2.0); EOSINOPHILS % (AUTO) 0.3 % (0.0-7.0); HEMATOCRIT 38.1 % (31.2-41.9); HEMOGLOBIN 12.5 g/dL (10.9-14.3); LYMPHOCYTES # (AUTO) 0.9 K/uL (20.0-40.0); LYMPHOCYTES % (AUTO) 8.1 % (20.5-51.5); MEAN CORPUSCULAR HEMOGLOBIN 28.7 uug (24.7-32.8); MEAN CORPUSCULAR HGB CONC 33 g/dL (32.3-35.6); MEAN CORPUSCULAR VOLUME 87.6 fL (75.5-95.3); MONOCYTES # (AUTO) 0.6 K/uL (2.0-10.0); MONOCYTES % (AUTO) 5.5 % (0.0-11.0); NEUTROPHILS # (AUTO) 9.8 K/uL (1.8-8.9); NEUTROPHILS % (AUTO) 85.8 % (38.5-71.5); PLATELET COUNT (AUTO) 212 K/uL (179-408); RED BLOOD CELL COUNT(AUTO) 4.35 MIL/uL (3.63-4.92); WHITE BLOOD COUNT (AUTO) 11.4 K/uL (3.8-11.8)
[2018-08-23 10:46] LABS: CREATININE 0.8 mg/dL (0.6-1.3); POTASSIUM 4.5 mmol/L (3.5-5.1)
[2018-08-23 10:52] LABS: BILIRUBIN,DIRECT 0.1 mg/dL (0.0-0.2); BILIRUBIN,TOTAL 0.3 mg/dL (0.2-1.0); TOTAL PROTEIN, SERUM 7.7 g/dL (6.4-8.2)
[2018-08-23] MEDS ORDERED: INSULIN REGULAR, HUMAN 300 UNIT/3 ML VIAL IV ONE (11:00)
[2018-08-23] MEDS ORDERED: INSULIN REGULAR, HUMAN 300 UNIT/3 ML VIAL ONE (11:07)
[2018-08-23] MEDS ORDERED: ASPIRIN 325 MG TABLET PO ONE (12:00)
[2018-08-23] MEDS ORDERED: ASPIRIN 325 MG TABLET ONE (12:04)
--- NOTE | 2018-08-23 13:14 | NUR ---
Pt trans to tele floor , NAD noted.
[2018-08-23 13:20] VITALS: BP 112/72
--- NOTE | 2018-08-23 13:20 | NUR ---
RECEIVED PATIENT 48 YEARS OLD FEMALE FROM THE ED WITH DX OF SEIZURES AND ELEVATED TROPONIN TO ROOM 220 PLACED INTO BED FIXED AND MADE COMFORTABLE PATIENT IS ALERT AND AWARE SPEAKS MOSTLY TAMAZIGHT ORIENTED TO ROOM AND HOSPITAL PROTOCOL LEFT HAND WITH HEPLOCK INTACT.PLACED ON TELE SR ON ROOM AIR WITH NO SOB MADE COMFORTABLE CALLED DR BEGUM AND LEFT HIM A MESSAGE FOR ADMISSION ORDERS.
--- NOTE | 2018-08-23 13:45 | NUR ---
PATIENT IS VERY UNCOOPERATIVE REFUSING TO TAKE HER CLOTHES OFF WANTS TO LEAVE STATED HER FAMILY CAN PICK HER UP NOTIFIED HER THAT SHE IS NOT MEDICALLY CLEARED TO LEAVE BUT IF HER FAMILY COMES TO PICK HER UP AND THEY SIGN THE AGAINST MEDICAL FORM THEN THE CAN TAKE HER HOME WE MANAGED TO REMOVE HER BLOUSE APPLIED THE TELEMETRY REFUSED TO REMOVE HER PANTS AND REFUSED TO WEAR THE HOSPITAL SOCKS BED PADDED AT THIS TIME WILL CONTINUE TO OBSERVE.
--- NOTE | 2018-08-23 14:09 | NUR ---
CALL RECEIVED FROM DR BEGUM WITH NEW ORDERS AND NOTED
[2018-08-23] MEDS ORDERED: ACETAMINOPHEN ES 500 MG TABLET PO SCH (16:00)
[2018-08-23] MEDS ORDERED: QUETIAPINE FUMARATE 25 MG TABLET PO SCH (16:00)
[2018-08-23] MEDS: QUETIAPINE FUMARATE 100 MG TABLET PO SCH (16:00)
[2018-08-23 16:08] VITALS: BP 108/89
[2018-08-23] MEDS: LACOSAMIDE 50 MG TABLET PO SCH (17:00)
[2018-08-23] MEDS: DOCUSATE SODIUM 100 MG CAPSULE PO SCH (17:00)
[2018-08-23] MEDS ORDERED: ARGININE HCL PO SCH (17:00)
[2018-08-23] MEDS ORDERED: MORPHINE SULFATE 2 MG/1 ML DISP.SYRIN IV PRN (17:00)
[2018-08-23] MEDS ORDERED: DEXTROSE 50% 50 ML DISP.SYRIN IV PRN (17:00)
[2018-08-23] MEDS ORDERED: LORAZEPAM 2 MG/1 ML VIAL IV PRN ×2 (17:00)
[2018-08-23] MEDS ORDERED: ONDANSETRON 4 MG/2 ML VIAL IV PRN (17:00)
[2018-08-23] MEDS: FERROUS SULFATE 325 MG TABEC PO SCH (17:00)
[2018-08-23] MEDS: INSULIN REGULAR, HUMAN 300 UNIT/3 ML VIAL SQ PRN (17:11)
[2018-08-23] MEDS: BLOOD SUGAR DIAGNOSTIC 1 EACH STRIP VI SCH ×2 (17:14→20:37)
[2018-08-23 20:18] VITALS: BP 113/71
[2018-08-23] MEDS: SENNOSIDES 1 TABLET PO SCH (20:31)
[2018-08-23] MEDS: LEVETIRACETAM 500 MG TABLET PO SCH (20:31)
[2018-08-23] MEDS: INSULIN REGULAR, HUMAN 300 UNITS/3 ML VIAL SQ PRN (20:40)
[2018-08-23] MEDS ORDERED: ATORVASTATIN 40 MG TABLET PO SCH (21:00)
--- NOTE | 2018-08-23 21:12 | NUR ---
PATIENT AWAKE IN BED, AAOX3 MAINLY MALDIVIAN SPEAKING. DENIES PAIN ON ANY DISTRESS ON ASSESSMENT. SAFETY AND SZ PRECAUTIONS IN PLACE, WILL CONTINUE TO MONITOR PATIENT
[2018-08-23 23:51] VITALS: BP 93/59
[2018-08-24] MEDS: QUETIAPINE FUMARATE 100 MG TABLET PO SCH ×2 (03:55→16:00)
[2018-08-24 04:58] VITALS: BP 96/56
[2018-08-24] MEDS: BLOOD SUGAR DIAGNOSTIC 1 EACH STRIP VI SCH ×4 (06:19→20:56)
--- NOTE | 2018-08-24 06:20 | NUR ---
PATIENT IS ASLEEP AT THIS TIME, NO C/O PAIN OR ANY DISTRESS, NO SZ ACTIVITY ON THIS SHIFT. SAFETY AND SZ PRECAUTIONS MAINTAINED AT ALL TIMES
[2018-08-24 06:47] LABS: *BILIRUBIN,URIN NEGATIVE (NEGATIVE); *BLOOD, URINE NEGATIVE (NEGATIVE); *CLARITY,URINE CLEAR (CLEAR); *COLOR,URINE YELLOW (YELLOW); *KETONES,URINE NEGATIVE (NEGATIVE); *UROBILINOGEN,URINE 0.2 E.U./dl (NORMAL); LEUKOCYTE ESTERASE ,URINE NEGATIVE (NEGATIVE); NITRITE, URINE NEGATIVE (NEGATIVE); PH,URINE 5.5 (5.0-8.0); UGLUCOSE NEGATIVE (NEGATIVE)
[2018-08-24 06:48] LABS: BASOPHILS % (AUTO) 0.6 % (0.0-2.0); EOSINOPHILS # (AUTO) 0.2 K/uL (0.0-0.7); EOSINOPHILS % (AUTO) 3.5 % (0.0-7.0); HEMATOCRIT 39.5 % (31.2-41.9); HEMOGLOBIN 12.9 g/dL (10.9-14.3); LYMPHOCYTES # (AUTO) 2.4 K/uL (20.0-40.0); LYMPHOCYTES % (AUTO) 39.9 % (20.5-51.5); MEAN CORPUSCULAR HEMOGLOBIN 28.6 uug (24.7-32.8); MEAN CORPUSCULAR HGB CONC 33 g/dL (32.3-35.6); MEAN CORPUSCULAR VOLUME 87.7 fL (75.5-95.3); MONOCYTES # (AUTO) 0.5 K/uL (2.0-10.0); MONOCYTES % (AUTO) 8.3 % (0.0-11.0); NEUTROPHILS # (AUTO) 2.9 K/uL (1.8-8.9); NEUTROPHILS % (AUTO) 47.7 % (38.5-71.5); PLATELET COUNT (AUTO) 220 K/uL (179-408); RED BLOOD CELL COUNT(AUTO) 4.51 MIL/uL (3.63-4.92); WHITE BLOOD COUNT (AUTO) 6.1 K/uL (3.8-11.8)
[2018-08-24 06:53] LABS: WBC,URINE 0-3 /HPF (0-3)
[2018-08-24 06:58] LABS: BILIRUBIN,TOTAL 0.3 mg/dL (0.2-1.0); CREATININE 0.8 mg/dL (0.6-1.3); MAGNESIUM 1.9 mg/dL (1.8-2.4); PHOSPHOROUS 4.3 mg/dL (2.5-4.9); POTASSIUM 3.9 mmol/L (3.5-5.1); TOTAL PROTEIN, SERUM 7.4 g/dL (6.4-8.2)
[2018-08-24 07:00] LABS: THYROID STIMULATING HORMONE 1.554 mIU/mL (0.358-3.740)
[2018-08-24] MEDS: INSULIN REGULAR, HUMAN 300 UNIT/3 ML VIAL SQ PRN ×3 (07:32→21:06)
--- NOTE | 2018-08-24 07:42 | NUR ---
AWAKE ALERT GUAMANIAN SPEAKING DENIES PAIN OR DISCOMFORTS AT THIS TIME PATIENT HAS NO SEIZURE ACTIVITIES AT THIS TIME WILL CONTINUE TO OBSERVE AND PROVIDE SAFE AND THERAPEUTIC ENVIRONMENT AT ALL TIMES.
[2018-08-24] MEDS: LACOSAMIDE 50 MG TABLET PO SCH ×2 (09:00→16:56)
[2018-08-24] MEDS: MULTIVITAMINS,THERAPEUTIC TABLET PO SCH (09:00)
[2018-08-24] MEDS ORDERED: Medication Not On Formulary EA (Multivitamins (Multivitamin) 1 TAB) PO SCH (09:00)
[2018-08-24] MEDS: LEVETIRACETAM 500 MG TABLET PO SCH ×2 (09:00→20:46)
[2018-08-24] MEDS: ASPIRIN 81 MG TAB.CHEW PO SCH (09:00)
[2018-08-24] MEDS: DOCUSATE SODIUM 100 MG CAPSULE PO SCH ×2 (09:00→16:56)
[2018-08-24] MEDS: FERROUS SULFATE 325 MG TABEC PO SCH ×2 (09:00→16:56)
[2018-08-24] MEDS: PYRIDOXINE HCL 100 MG TABLET PO SCH (09:00)
--- NOTE | 2018-08-24 09:13 | NUR ---
PATIENT REFUSED ALL OF HER MEDICATIONS ALL ATTEMPTS EXPLAINATIONS AND ASSISTANCE FAILED WILL CONTINUE TO OBSERVE.
[2018-08-24 12:06] VITALS: BP 98/67
--- NOTE | 2018-08-24 14:00 | NUR ---
PATIENT SEEN BY THE PHYSICAL THERAPY FOR AMBULATION WITH GOOD ENDURANCE AT THIS TIME
--- NOTE | 2018-08-24 15:13 | NUR ---
PATIENT SEEN AND EXAMINED BY TORIE BRIAN NP AND WAS AWARE THAT PATIENT REFUSED ALL OF HER MEDICATIONS DESPITE ENCOURAGEMENTS.
[2018-08-24 16:10] VITALS: BP 99/64
--- NOTE | 2018-08-24 17:00 | NUR ---
TOOK ALL HER MEDICATIONS EXCEPT THE SERROQUEL STATED SHE DOES NOT TAKE THIS PARTICULR MEDICATION WILL NOTIFY
--- NOTE | 2018-08-24 18:08 | NUR ---
DR PINO HERE TO SEE PATIENT WITH NO NEW ORDERS AT THIS TIME.
[2018-08-24 20:15] VITALS: BP 107/66
[2018-08-24] MEDS: SENNOSIDES 1 TABLET PO SCH (20:46)
[2018-08-24] MEDS: ATORVASTATIN 40 MG TABLET PO SCH ×2 (20:46→21:01)
--- NOTE | 2018-08-24 21:10 | NUR ---
Received patient awake in bed. Patient is mainly Irish speaking. No signs of acute distress. Denies pain. IV intact and patent. Patient tolerated routine meds but refused 1 tab of ordered 40 mg Lipitor. Seizure and fall/safety precautions implemented. Bed in lowest and locked position with padded side rails. All needs met at this time. Will continue to monitor throughout shift.
[2018-08-25 00:06] VITALS: BP 110/62
[2018-08-25 04:00] VITALS: BP 97/52
[2018-08-25] MEDS: QUETIAPINE FUMARATE 100 MG TABLET PO SCH ×2 (04:00→16:54)
--- NOTE | 2018-08-25 06:27 | NUR ---
Patient rested well in between caret. No s/s of pain or acute distress. VSS. Seizure and safety measures implemented and effective. SR on tele monitor. No seizure noted throughout shift. No further changes in status. Continue plan of care.
[2018-08-25] MEDS: BLOOD SUGAR DIAGNOSTIC 1 EACH STRIP VI SCH ×4 (06:31→20:42)
--- NOTE | 2018-08-25 07:15 | NUR ---
RECEIVED PATIENT IN BED. AOX3 WITH SOME CONFUSION. LEFT HAND IV HL, INTACT. DENIES PAIN OR SOB. ABLE TO AMBULATE WITH ASSIST TO BATHROOM WITHOUT DIZZINESS. ALL NEEDS MET AT THIS TIME. WILL CONTINUE TO MONITOR FOR SEIZURE PRECAUTIONS AND CHANGES IN MENTAL STATUS. SAFETY MEASURES IN PLACE. BED IN LOW POSITION. CALL LIGHT IN REACH. FALL PRECAUTIONS IN PLACE.
--- NOTE | 2018-08-25 07:21 | NUR ---
INFORMATION SENT: JAC,UR-08/24,PROGRESS NOTES 4-2 INSURANCE NAME: [facility] FAX NUMBER: [phone] FAX SENT
[2018-08-25] MEDS: INSULIN REGULAR, HUMAN 300 UNIT/3 ML VIAL SQ PRN ×3 (08:08→18:15)
[2018-08-25] MEDS: ASPIRIN 81 MG TAB.CHEW PO SCH (08:09)
[2018-08-25] MEDS: DOCUSATE SODIUM 100 MG CAPSULE PO SCH ×2 (08:09→16:55)
[2018-08-25] MEDS: LACOSAMIDE 50 MG TABLET PO SCH ×2 (08:10→16:54)
[2018-08-25] MEDS: LEVETIRACETAM 500 MG TABLET PO SCH ×2 (08:10→20:30)
[2018-08-25] MEDS: MULTIVITAMINS,THERAPEUTIC TABLET PO SCH (08:10)
[2018-08-25] MEDS: FERROUS SULFATE 325 MG TABEC PO SCH ×2 (08:10→17:00)
[2018-08-25 08:43] LABS: BASOPHILS % (AUTO) 0.4 % (0.0-2.0); CREATININE 0.8 mg/dL (0.6-1.3); EOSINOPHILS # (AUTO) 0.1 K/uL (0.0-0.7); HEMATOCRIT 38.7 % (31.2-41.9); HEMOGLOBIN 12.8 g/dL (10.9-14.3); LYMPHOCYTES # (AUTO) 2.8 K/uL (20.0-40.0); LYMPHOCYTES % (AUTO) 40.4 % (20.5-51.5); MEAN CORPUSCULAR HEMOGLOBIN 29.1 uug (24.7-32.8); MEAN CORPUSCULAR HGB CONC 33 g/dL (32.3-35.6); MONOCYTES # (AUTO) 0.5 K/uL (2.0-10.0); MONOCYTES % (AUTO) 7.4 % (0.0-11.0); NEUTROPHILS # (AUTO) 3.4 K/uL (1.8-8.9); NEUTROPHILS % (AUTO) 49.8 % (38.5-71.5); PLATELET COUNT (AUTO) 216 K/uL (179-408); POTASSIUM 3.8 mmol/L (3.5-5.1); WHITE BLOOD COUNT (AUTO) 6.9 K/uL (3.8-11.8)
[2018-08-25] MEDS: PYRIDOXINE HCL 100 MG TABLET PO SCH (09:00)
[2018-08-25 11:09] VITALS: BP 95/46
[2018-08-25 15:12] VITALS: BP 97/57
--- NOTE | 2018-08-25 18:19 | NUR ---
PATIENT AOX3 CONFUSED AT TIMES. ABLE TO AMBULATE WITH ASSIST X1 PERSON. LT. HAND IV HL AND INTACT. NO SEIZURE ACTIVITY NOTED THROUGHOUT THE SHIFT. PATIENT DENIES PAIN OR SOB. VITAL SIGNS STABLE THROUGHOUT THE SHIFT. PATIENT HAS EPISODES ON NONCOMPLIANTS WITH ORDERED MEDICATIONS. ON TELEMETRY SR HR 70'S. SAFETY, FALL AND SEIZURE PRECAUTIONS IN PLACE. NEURO CONSULT HAS BEEN ARRANGED PER FURNITURE PAINTER.
[2018-08-25 20:00] VITALS: BP 104/60
[2018-08-25] MEDS: SENNOSIDES 1 TABLET PO SCH (20:30)
[2018-08-25] MEDS: ATORVASTATIN 40 MG TABLET PO SCH (20:30)
[2018-08-25] MEDS: INSULIN REGULAR, HUMAN 300 UNITS/3 ML VIAL SQ PRN (20:40)
[2018-08-26] VITALS: BP 95/52
[2018-08-26 04:00] VITALS: BP 92/53
[2018-08-26] MEDS: QUETIAPINE FUMARATE 100 MG TABLET PO SCH (04:44)
--- NOTE | 2018-08-26 05:57 | NUR ---
INFORMATION SENT: JAC,UR-08/25,PROGRESS NOTES 4-3 INSURANCE NAME: [facility] FAX NUMBER: [phone] FAX SENT
[2018-08-26] MEDS: BLOOD SUGAR DIAGNOSTIC 1 EACH STRIP VI SCH ×2 (07:40→11:32)
[2018-08-26] MEDS: INSULIN REGULAR, HUMAN 300 UNIT/3 ML VIAL SQ PRN ×2 (07:57→11:33)
[2018-08-26] MEDS: LEVETIRACETAM 500 MG TABLET PO SCH (08:04)
[2018-08-26] MEDS: MULTIVITAMINS,THERAPEUTIC TABLET PO SCH (08:04)
[2018-08-26] MEDS: LACOSAMIDE 50 MG TABLET PO SCH (08:04)
[2018-08-26] MEDS: ASPIRIN 81 MG TAB.CHEW PO SCH (08:05)
[2018-08-26] MEDS: DOCUSATE SODIUM 100 MG CAPSULE PO SCH (08:24)
[2018-08-26] MEDS: FERROUS SULFATE 325 MG TABEC PO SCH (08:24)
[2018-08-26] MEDS: PYRIDOXINE HCL 100 MG TABLET PO SCH (08:24)
--- NOTE | 2018-08-26 08:52 | NUR ---
Received patient, awake, alert x 2-3, mainly Khmer speaking. With periods of confusion. No chest pains or SOB noted. Patient upset and claims she wants to go home. Still telemetry, Normal Sinus with HR-79. Patient refused Colace, Vit B6 and ferrous sulfate. Claims it was too much for her. Discussed risks and benefits but patient still refused.
[2018-08-26 11:15] VITALS: BP 129/81
[2018-08-26] MEDS ORDERED: ATOR40TA PO (11:37)
--- NOTE | 2018-08-26 13:34 | NUR ---
Eileen daughter informed of discharge. Informed daughter of new prescriptions and daughter explained to the patient as well as discharge education and discharge to [facility]. Discharge packet education both explained to daughter and patient. Patient still with some confusion. Instructed patient to take medications as prescribed and follow-up with PCP.
--- NOTE | 2018-08-26 14:00 | NUR ---
Discharge to [facility] accompanied by private transport c/o [place]. Went home per wheelchair. No complaints of pain, no chest pains or SOB noted, with baseline LOC.
--- NOTE | 2018-08-27 06:21 | NUR ---
INFORMATION SENT: JAC,UR-08/26,DISCHARGE SUMMARY INSURANCE NAME: [facility] FAX NUMBER: [phone] FAX SENT
== END 2018-08-26 14:00 | DRG 53 ==
LOC: ER 09:35 → TELE3 13:09
PROVIDERS: ADMIT Internal Medicine; ATTEND Internal Medicine
DX: G40.909 Epilepsy, unspecified, not intractable, without status epilepticus (principal); I21.A1 Myocardial infarction type 2; E87.2 Acidosis; E88.41 MELAS syndrome; E11.65 Type 2 diabetes mellitus with hyperglycemia; I69.354 Hemiplegia and hemiparesis following cerebral infarction affecting left non-dominant side; Z79.4 Long term (current) use of insulin; Z91.14 Patient's other noncompliance with medication regimen; E87.1 Hypo-osmolality and hyponatremia; E78.5 Hyperlipidemia, unspecified; R55 Syncope and collapse; Z91.81 History of falling; Z88.1 Allergy status to other antibiotic agents; Z88.8 Allergy status to other drugs, medicaments and biological substances; E86.1 Hypovolemia; Z79.82 Long term (current) use of aspirin; Z79.899 Other long term (current) drug therapy
CPT/HCPCS: 36415; 70030-TC; 70450; 71045; 83735; 84100; 84443; 85025; 87086; 93005; 93307; 93880; 97110; 97112; 97116; 97165; 97530; A4663; G0378; J1815; J1953; J7030; J7060

== ENCOUNTER 2018-12-30 12:28 | Inpatient (IN) | payer MEDICAID ==
[~2018-12-30] VITALS: Ht 160 cm; Wt 44.5 kg
[~2018-12-30 12:28] MED LIST changes: +ACET-73 PO; -ASPI1CPM PO; +ASPI81TA31 PO; +DOCU100C36 PO; +FERR325T28 PO; -GUAI5SYR PO; +INSU100C SQ; -INSU100V28 SQ; +LACO200T2 PO; +LEVE1000 PO; -LEVE500T9 PO; +MULT1TAB73 PO; +PYRI25TA4 PO; +QUET100T PO; +QUET25TA PO; +SENN-168 PO; +[UNRECOGNIZED DRUG - CODE] PO
[2018-12-30 13:38] LABS: BASOPHILS % (AUTO) 0.1 % (0.0-2.0); EOSINOPHILS # (AUTO) 0.1 K/uL (0.0-0.7); EOSINOPHILS % (AUTO) 0.5 % (0.0-7.0); HEMATOCRIT 37.2 % (31.2-41.9); HEMOGLOBIN 12.7 g/dL (10.9-14.3); LYMPHOCYTES % (AUTO) 9.4 % (20.5-51.5); MEAN CORPUSCULAR HEMOGLOBIN 31.2 uug (24.7-32.8); MEAN CORPUSCULAR HGB CONC 34 g/dL (32.3-35.6); MEAN CORPUSCULAR VOLUME 91.6 fL (75.5-95.3); MONOCYTES # (AUTO) 0.5 K/uL (2.0-10.0); MONOCYTES % (AUTO) 4.6 % (0.0-11.0); NEUTROPHILS # (AUTO) 9.2 K/uL (1.8-8.9); NEUTROPHILS % (AUTO) 85.4 % (38.5-71.5); PLATELET COUNT (AUTO) 216 K/uL (179-408); RED BLOOD CELL COUNT(AUTO) 4.06 MIL/uL (3.63-4.92); WHITE BLOOD COUNT (AUTO) 10.8 K/uL (3.8-11.8)
[2018-12-30 13:45] LABS: CARBON DIOXIDE 28 mmol/L (21-32); CHLORIDE 100 mmol/L (98-107); CREATININE 0.9 mg/dL (0.6-1.3); UREA NITROGEN, BLOOD 14 mg/dL (7-18)
[2018-12-30 13:47] LABS: GLUCOSE 308 mg/dL (74-106)
[2018-12-30 13:50] LABS: ETHANOL < 3 MG/DL (0-0)
[2018-12-30 13:51] LABS: ALANINE AMINOTRANSFERASE 29 U/L (14-59); ALKALINE PHOSPHATASE 87 U/L (50-136); ASPARTATE AMINOTRANSFERASE 11 U/L (15-37); BILIRUBIN,DIRECT < 0.1 mg/dL (0.0-0.2); BILIRUBIN,TOTAL 0.2 mg/dL (0.2-1.0); TOTAL PROTEIN, SERUM 7.6 g/dL (6.4-8.2)
[2018-12-30] MEDS ORDERED: LEVE500T9 PO (14:00)
[2018-12-30] MEDS ORDERED: ATOR40TA PO (14:00)
[2018-12-30] MEDS ORDERED: LEVE100S PO (14:02)
[2018-12-30 14:12] LABS: *BILIRUBIN,URIN NEGATIVE (NEGATIVE); *BLOOD, URINE NEGATIVE (NEGATIVE); *CLARITY,URINE CLEAR (CLEAR); *COLOR,URINE YELLOW (YELLOW); *KETONES,URINE NEGATIVE (NEGATIVE); *UROBILINOGEN,URINE 0.2 E.U./dl (NORMAL); LEUKOCYTE ESTERASE ,URINE NEGATIVE (NEGATIVE); NITRITE, URINE NEGATIVE (NEGATIVE); PH,URINE 6.5 (5.0-8.0)
[2018-12-30 14:16] LABS: UGLUCOSE 2+ (NEGATIVE)
[2018-12-30 14:22] LABS: *URINE HCG, QUAL NEGATIVE (NEGATIVE)
[2018-12-30 14:28] LABS: BACTERIA,URINE FEW /HPF (NONE SEEN); RBC,URINE 0-3 /HPF (0-3); SQUAMOUS EPITHELIAL CELL,UR MODERATE /HPF (NONE SEEN); WBC,URINE 0-3 /HPF (0-3)
[2018-12-30 16:10] VITALS: BP 113/68
[2018-12-30] MEDS ORDERED: LEVETIRACETAM IV 500 MG in IV DEXTROSE 5% 100 ML IV ONE (16:15)
[2018-12-30 17:43] LABS: *AMPHETAMINE, URINE NEGATIVE (NEGATIVE); *BARBITURATE, URINE NEGATIVE (NEGATIVE); *CANNABINOID, URINE NEGATIVE (NEGATIVE); *COCCAINE, URINE NEGATIVE (NEGATIVE); *OPIATE, URINE NEGATIVE (NEGATIVE); *PHENCYCLIDINE SCREEN,URINE NEGATIVE (NEGATIVE)
[2018-12-30 20:00] VITALS: BP 112/66
[2018-12-30] MEDS ORDERED: IV NS 1000 ML 1,000 ML IV PRN (20:33)
[2018-12-30] MEDS ORDERED: DEXTROSE 50% 50 ML DISP.SYRIN IV PRN (20:45)
[2018-12-30] MEDS ORDERED: ONDANSETRON 4 MG/2 ML VIAL IV PRN (20:45)
[2018-12-30] MEDS ORDERED: Z GUARD REMEDY PASTE 57 GM TUBE TOP PRN (20:45)
[2018-12-30] MEDS ORDERED: ACETAMINOPHEN 325 MG TABLET PO PRN (20:45)
[2018-12-30] MEDS: ATORVASTATIN 40 MG TABLET PO SCH (22:31)
[2018-12-30] MEDS: BLOOD SUGAR DIAGNOSTIC 1 EACH STRIP VI SCH (22:39)
[2018-12-30] MEDS: INSULIN REGULAR, HUMAN 300 UNIT/3 ML VIAL SQ PRN (22:59)
[2018-12-30 23:47] VITALS: BP 99/64
[2018-12-31 05:05] VITALS: BP 91/55
[2018-12-31 06:28] LABS: BILIRUBIN,TOTAL 0.3 mg/dL (0.2-1.0); CREATININE 0.7 mg/dL (0.6-1.3); MAGNESIUM 1.7 mg/dL (1.8-2.4); PHOSPHOROUS 3.4 mg/dL (2.5-4.9); POTASSIUM 3.7 mmol/L (3.5-5.1); TOTAL PROTEIN, SERUM 6.7 g/dL (6.4-8.2)
[2018-12-31 06:34] LABS: BASOPHILS % (AUTO) 0.5 % (0.0-2.0); EOSINOPHILS # (AUTO) 0.2 K/uL (0.0-0.7); EOSINOPHILS % (AUTO) 1.7 % (0.0-7.0); HEMATOCRIT 34.5 % (31.2-41.9); HEMOGLOBIN 11.8 g/dL (10.9-14.3); LYMPHOCYTES # (AUTO) 2.8 K/uL (20.0-40.0); LYMPHOCYTES % (AUTO) 29.5 % (20.5-51.5); MEAN CORPUSCULAR HEMOGLOBIN 31.4 uug (24.7-32.8); MEAN CORPUSCULAR HGB CONC 34 g/dL (32.3-35.6); MONOCYTES # (AUTO) 0.9 K/uL (2.0-10.0); NEUTROPHILS # (AUTO) 5.6 K/uL (1.8-8.9); NEUTROPHILS % (AUTO) 59.3 % (38.5-71.5); PLATELET COUNT (AUTO) 211 K/uL (179-408); RED BLOOD CELL COUNT(AUTO) 3.75 MIL/uL (3.63-4.92); WHITE BLOOD COUNT (AUTO) 9.5 K/uL (3.8-11.8)
[2018-12-31 06:37] LABS: THYROID STIMULATING HORMONE 2.235 mIU/mL (0.358-3.740)
[2018-12-31] MEDS ORDERED: INSULIN LISPRO 300 UNIT/3 ML VIAL SQ SCH ×2 (07:30→11:30)
[2018-12-31] MEDS: BLOOD SUGAR DIAGNOSTIC 1 EACH STRIP VI SCH ×4 (07:34→21:23)
[2018-12-31] MEDS: DOCUSATE SODIUM 100 MG CAPSULE PO SCH ×2 (08:16→16:25)
[2018-12-31] MEDS: QUETIAPINE FUMARATE 100 MG TABLET PO SCH ×2 (08:16→16:27)
[2018-12-31] MEDS: FERROUS SULFATE 325 MG TABEC PO SCH ×2 (08:16→16:26)
[2018-12-31] MEDS: INSULIN REGULAR, HUMAN 300 UNIT/3 ML VIAL SQ PRN ×3 (08:26→21:28)
[2018-12-31] MEDS ORDERED: MAGNESIUM SULFATE/D5W 100 ML IV SCH (08:45)
[2018-12-31] MEDS: LEVETIRACETAM 500 MG/5 ML LIQUID UDC PO SCH ×2 (08:51→21:16)
[2018-12-31] MEDS ORDERED: LEVETIRACETAM 500 MG/5 ML LIQUID UDC PO SCH (09:00)
[2018-12-31] MEDS ORDERED: PYRIDOXINE HCL 100 MG TABLET PO SCH ×2 (09:00)
[2018-12-31] MEDS ORDERED: LEVETIRACETAM 500 MG TABLET PO SCH ×3 (09:00)
[2018-12-31] MEDS: PYRIDOXINE HCL 100 MG TABLET PO SCH (10:26)
[2018-12-31 11:23] VITALS: BP 98/55
[2018-12-31] MEDS: INSULIN REGULAR, HUMAN 300 UNIT/3 ML VIAL SQ SCH ×2 (12:22→16:34)
[2018-12-31 15:05] VITALS: BP 98/65
[2018-12-31 19:00] VITALS: BP 100/61
[2018-12-31] MEDS: ATORVASTATIN 40 MG TABLET PO SCH (21:16)
[2019-01-01 04:41] VITALS: BP 90/50
[2019-01-01 05:40] LABS: CREATININE 0.8 mg/dL (0.6-1.3); PHOSPHOROUS 3.8 mg/dL (2.5-4.9)
[2019-01-01 06:06] LABS: BASOPHILS % (AUTO) 0.5 % (0.0-2.0); EOSINOPHILS # (AUTO) 0.2 K/uL (0.0-0.7); HEMATOCRIT 36.4 % (31.2-41.9); HEMOGLOBIN 12.4 g/dL (10.9-14.3); LYMPHOCYTES # (AUTO) 2.6 K/uL (20.0-40.0); LYMPHOCYTES % (AUTO) 37.4 % (20.5-51.5); MEAN CORPUSCULAR HEMOGLOBIN 31.5 uug (24.7-32.8); MEAN CORPUSCULAR HGB CONC 34 g/dL (32.3-35.6); MEAN CORPUSCULAR VOLUME 92.1 fL (75.5-95.3); MONOCYTES # (AUTO) 0.6 K/uL (2.0-10.0); MONOCYTES % (AUTO) 9.1 % (0.0-11.0); NEUTROPHILS # (AUTO) 3.4 K/uL (1.8-8.9); PLATELET COUNT (AUTO) 196 K/uL (179-408); RED BLOOD CELL COUNT(AUTO) 3.95 MIL/uL (3.63-4.92); WHITE BLOOD COUNT (AUTO) 6.8 K/uL (3.8-11.8)
[2019-01-01] MEDS: BLOOD SUGAR DIAGNOSTIC 1 EACH STRIP VI SCH (06:08)
[2019-01-01] MEDS: INSULIN REGULAR, HUMAN 300 UNIT/3 ML VIAL SQ SCH (07:53)
[2019-01-01] MEDS: DOCUSATE SODIUM 100 MG CAPSULE PO SCH (08:17)
[2019-01-01] MEDS: FERROUS SULFATE 325 MG TABEC PO SCH (08:17)
[2019-01-01] MEDS: QUETIAPINE FUMARATE 100 MG TABLET PO SCH (08:18)
[2019-01-01] MEDS: PYRIDOXINE HCL 100 MG TABLET PO SCH (08:18)
[2019-01-01] MEDS: LEVETIRACETAM 500 MG/5 ML LIQUID UDC PO SCH (08:18)
[2019-01-01] MEDS: INSULIN REGULAR, HUMAN 300 UNIT/3 ML VIAL SQ PRN (08:25)
[2019-01-01 11:20] VITALS: BP 102/55
== END 2019-01-01 12:15 | DRG 53 ==
LOC: ER 12:30 → TELE3 15:17
PROVIDERS: ADMIT Nurse Practitioner Acute Care; ATTEND Nurse Practitioner Acute Care
DX: G40.909 Epilepsy, unspecified, not intractable, without status epilepticus (principal); G93.49 Other encephalopathy; E44.0 Moderate protein-calorie malnutrition; E46 Unspecified protein-calorie malnutrition; E88.41 MELAS syndrome; E11.65 Type 2 diabetes mellitus with hyperglycemia; E83.42 Hypomagnesemia; G81.94 Hemiplegia, unspecified affecting left nondominant side; Z79.4 Long term (current) use of insulin; Z79.899 Other long term (current) drug therapy; Z79.82 Long term (current) use of aspirin; R40.2142 Coma scale, eyes open, spontaneous, at arrival to emergency department; R40.2362 Coma scale, best motor response, obeys commands, at arrival to emergency department; R40.2252 Coma scale, best verbal response, oriented, at arrival to emergency department; Z68.1 Body mass index [BMI] 19.9 or less, adult
CPT/HCPCS: 36415; 80307; 83735; 84100; 84443; 84703; 85025; 93005; A4663; G0378; G0480; J1815; J1953; J2405; J3475; J7030; J7060